=== PATIENT | female | born 1950 | race Caucasian/White ===

== ENCOUNTER 2016-02-17 08:45 | Outpatient (RCR) | payer MEDICARE, BC ==
[~2016-02-17 08:45] MED LIST: BACTRIM DS 8001 TAB PO; CHOLESTYRAMINE1 PO1; CIPRO 500MG TA500 MG PO; DEPO-ESTRADIO5 MG/ML IM; FEOSOL65 MG PO; FLAGYL 250250 MG/TAB PO; HCTZ12.5TAB PO; IRON; MERCAPTOPURINE50 MG PO; NEXIUM 40MG40 MG PO; NEXIUM40 MG PO; NORCO 325 MG-51 TAB PO; PHENERGAN 25 TA25 MG PO; PURINETHOL 50MG50 MG PO; QUESTRAN1 GM PO; QUESTRAN4 GM/9 GM PO; REMICADE V100 MG/VIA IV; RHINOCORT0.032 MG/1 NS; RT ADVAIR HFA 1112 G IH; SINGULAIR 110 MG/TAB PO; SINGULAIR10 MG PO; SYNTHROID0.05 MG/TA PO; VENTOLIN0.09 MG IH; ZESTRIL 20MG TA20 MG PO; ZYRTEC 10MG10 MG PO; ZYRTEC10 MG PO
== END 2016-02-24 09:02 | disposition still patient (30) ==
LOC: MKS.ESL.PT 08:45
DX: M25.552 Pain in left hip (principal); M79.605 Pain in left leg
CPT/HCPCS: G8978-GP; G8979-GP; G8980-GP

== ENCOUNTER 2016-03-08 13:25 | Outpatient (CLI) | payer MEDICARE, BC ==
[~2016-03-08] VITALS: Ht 160 cm; Wt 80.0 kg
[2016-03-08 14:26] LABS: BASO % 0.5 % (0.0-2.0); EOS # 0.2 (0.0-0.7); EOS % 2.8 % (0-4.0); GRAN # 4.7 (1.4-6.5); GRAN % 54.2 % (42.2-75.2); HEMATOCRIT 37.2 % (37.0-47.0); HEMOGLOBIN 12.5 g/dl (12.5-16.0); LYMPH # 2.7 (1.2-3.4); LYMPH % 31.2 % (20.0-51.0); MEAN CELL VOLUME 91 fl (80.0-100.0); MEAN CORPUSCULAR HEMOGLOBIN 31 pg (27.0-31.0); MEAN CORPUSCULAR HGB CONC 34 g/dl (33.0-37.0); MEAN PLATELET VOLUME 8.8 fl (7.4-10.4); PLATELET COUNT 268 K/mm3 (130-400); RED BLOOD COUNT 4.07 M/mm3 (4.10-5.30); REDCELL DISTRIBUTION WIDTH-CV 14.1 % (11.5-14.5); WHITE BLOOD COUNT 8.6 K/mm3 (4.8-10.8)
[2016-03-08 15:30] VITALS: BP 134/70; PULSE 70; TEMP 97.4
[2016-03-08 16:00] VITALS: BP 129/70; PULSE 62; TEMP 98
[2016-03-08 16:30] VITALS: BP 112/65; PULSE 53; TEMP 97.6
[2016-03-08 17:00] VITALS: BP 117/75; PULSE 60; TEMP 97.6
[2016-03-08 17:30] VITALS: BP 125/65; PULSE 59; TEMP 97.7
== END 2016-03-08 17:40 | disposition home or self-care (01) ==
LOC: EUO 13:25
PROVIDERS: Internal Medicine Gastroenterology
DX: K50.00 Crohn's disease of small intestine without complications (principal)
CPT/HCPCS: J1200; J1745; J7050

== ENCOUNTER 2016-04-20 20:35 | Emergency (ER) | payer MEDICARE, BC ==
[~2016-04-20] VITALS: Ht 160 cm; Wt 81.4 kg
[2016-04-20 20:38] VITALS: TEMP 97.5
[2016-04-20 21:40] LABS: BASO % 0.1 % (0.0-2.0); GRAN # 5.5 (1.4-6.5); GRAN % 69.7 % (42.2-75.2); HEMATOCRIT 39.7 % (37.0-47.0); LYMPH # 2.3 (1.2-3.4); LYMPH % 28.7 % (20.0-51.0); MEAN CELL VOLUME 92 fl (80.0-100.0); MEAN CORPUSCULAR HEMOGLOBIN 30 pg (27.0-31.0); MEAN CORPUSCULAR HGB CONC 33 g/dl (33.0-37.0); MEAN PLATELET VOLUME 8.8 fl (7.4-10.4); MONO # 0.1 (0.1-0.6); PLATELET COUNT 303 K/mm3 (130-400); REDCELL DISTRIBUTION WIDTH-CV 14.7 % (11.5-14.5); WHITE BLOOD COUNT 7.9 K/mm3 (4.8-10.8)
[2016-04-20 21:51] LABS: ADJUSTED CALCIUM 9.3 mg/dL (8.4-10.2); ALBUMIN 4.5 gm/dL (3.5-5.0); CALCIUM 9.7 mg/dL (8.4-10.2); CREATININE, serum 0.68 mg/dL (0.52-1.25); POTASSIUM 3.5 mmol/L (3.4-5.0); TOTAL PROTEIN 8.4 gm/dL (6.4-8.2)
[2016-04-20 21:56] LABS: PH 7 (5-8); SQUAMOUS EPITHELIAL 0-2 /hpf; URINE APPEARANCE Clear; URINE BACTERIA None Seen /hpf; URINE BILIRUBIN Negative (NEGATIVE); URINE BLOOD Negative (NEGATIVE); URINE COLOR Yellow; URINE GLUCOSE Negative (NEGATIVE); URINE KETONE Negative (NEGATIVE); URINE RBC 0-2 /hpf; URINE UROBILINOGEN Negative (NEGATIVE); URINE WBC None Seen /hpf
[2016-04-20] MEDS ORDERED: ZOFRAN ODT4 MG PO (22:54)
[2016-04-20 23:13] VITALS: BP 128/76; PULSE 62
== END 2016-04-20 23:16 | disposition home or self-care (01) ==
LOC: COL.ER 20:35
PROVIDERS: Family Medicine
DX: K52.9 Noninfective gastroenteritis and colitis, unspecified (principal); K50.90 Crohn's disease, unspecified, without complications; I10 Essential (primary) hypertension
CPT/HCPCS: J1170; J2405; J7030; Q9967

== ENCOUNTER 2016-05-04 12:52 | Outpatient (CLI) | payer MEDICARE, BC ==
[~2016-05-04] VITALS: Ht 160 cm; Wt 82.0 kg
[~2016-05-04 12:52] MED LIST changes: +ZOFRAN ODT4 MG PO
[2016-05-04 13:39] LABS: MEAN CELL VOLUME 93 fl (80.0-100.0); MEAN CORPUSCULAR HGB CONC 32 g/dl (33.0-37.0); MEAN PLATELET VOLUME 9.1 fl (7.4-10.4); PLATELET COUNT 298 K/mm3 (130-400); RED BLOOD COUNT 3.95 M/mm3 (4.10-5.30); REDCELL DISTRIBUTION WIDTH-CV 14.9 % (11.5-14.5); WHITE BLOOD COUNT 7.2 K/mm3 (4.8-10.8)
[2016-05-04 14:05] LABS: HEMATOCRIT 36.9 % (37.0-47.0); HEMOGLOBIN 11.8 g/dl (12.5-16.0); MEAN CORPUSCULAR HEMOGLOBIN 30 pg (27.0-31.0)
[2016-05-04 14:08] LABS: ALBUMIN 3.7 gm/dL (3.5-5.0); BILIRUBIN,DIRECT 0.4 mg/dL (0.0-0.4); BILIRUBIN,TOTAL 0.8 mg/dL (0.0-1.0)
[2016-05-04 14:50] VITALS: BP 137/74; PULSE 60; TEMP 98
[2016-05-04 15:20] VITALS: BP 122/66; PULSE 57; TEMP 97.5
[2016-05-04 15:50] VITALS: BP 121/64; PULSE 65; TEMP 97.7
[2016-05-04 16:20] VITALS: BP 128/66; PULSE 5; TEMP 97.7
[2016-05-04 17:04] VITALS: BP 125/56; PULSE 58; TEMP 97.5
== END 2016-05-04 17:55 | disposition home or self-care (01) ==
LOC: EUO 12:52
PROVIDERS: Internal Medicine Gastroenterology
DX: K50.00 Crohn's disease of small intestine without complications (principal)
CPT/HCPCS: J1200; J1745; J7050

== ENCOUNTER 2016-06-29 13:10 | Outpatient (CLI) | payer MEDICARE, BC ==
[~2016-06-29] VITALS: Ht 160 cm; Wt 80.9 kg
[2016-06-29 13:39] LABS: HEMATOCRIT 37.6 % (37.0-47.0); HEMOGLOBIN 12.1 g/dl (12.5-16.0); MEAN CELL VOLUME 91 fl (80.0-100.0); MEAN CORPUSCULAR HEMOGLOBIN 29 pg (27.0-31.0); MEAN CORPUSCULAR HGB CONC 32 g/dl (33.0-37.0); MEAN PLATELET VOLUME 9.1 fl (7.4-10.4); PLATELET COUNT 263 K/mm3 (130-400); RED BLOOD COUNT 4.15 M/mm3 (4.10-5.30); REDCELL DISTRIBUTION WIDTH-CV 15.3 % (11.5-14.5); WHITE BLOOD COUNT 5.8 K/mm3 (4.8-10.8)
[2016-06-29 13:43] VITALS: BP 108/67; PULSE 52; TEMP 98
[2016-06-29 13:57] LABS: ALBUMIN 4.2 gm/dL (3.5-5.0); BILIRUBIN,TOTAL 0.9 mg/dL (0.0-1.0); TOTAL PROTEIN 7.4 gm/dL (6.4-8.2)
[2016-06-29 14:07] LABS: BILIRUBIN,DIRECT 0.5 mg/dL (0.0-0.4)
[2016-06-29 14:49] VITALS: BP 115/74; PULSE 53; TEMP 98
[2016-06-29 15:20] VITALS: BP 125/59; PULSE 52
[2016-06-29 15:50] VITALS: BP 107/62; PULSE 46
[2016-06-29 16:15] VITALS: BP 121/68; PULSE 55
[2016-06-29 16:49] VITALS: BP 114/60; PULSE 50; TEMP 98.3
== END 2016-06-29 16:50 | disposition home or self-care (01) ==
LOC: EUO 13:10
PROVIDERS: Internal Medicine Gastroenterology
DX: K50.00 Crohn's disease of small intestine without complications (principal)
CPT/HCPCS: J1200; J1745; J7050

== ENCOUNTER 2016-08-24 12:59 | Outpatient (CLI) | payer MEDICARE, BC ==
[~2016-08-24] VITALS: Ht 160 cm; Wt 80.9 kg
[2016-08-24 13:22] LABS: MEAN CELL VOLUME 90 fl (80.0-100.0); MEAN CORPUSCULAR HGB CONC 31 g/dl (33.0-37.0); MEAN PLATELET VOLUME 8.9 fl (7.4-10.4); PLATELET COUNT 254 K/mm3 (130-400); RED BLOOD COUNT 3.64 M/mm3 (4.10-5.30); REDCELL DISTRIBUTION WIDTH-CV 15.6 % (11.5-14.5); WHITE BLOOD COUNT 8.3 K/mm3 (4.8-10.8)
[2016-08-24 13:32] LABS: HEMATOCRIT 32.8 % (37.0-47.0); HEMOGLOBIN 10.3 g/dl (12.5-16.0); MEAN CORPUSCULAR HEMOGLOBIN 28 pg (27.0-31.0)
[2016-08-24 13:36] LABS: ALBUMIN 3.8 gm/dL (3.5-5.0); BILIRUBIN,TOTAL 0.6 mg/dL (0.0-1.0)
[2016-08-24 13:46] LABS: BILIRUBIN,DIRECT 0.5 mg/dL (0.0-0.4)
[2016-08-24 15:00] VITALS: BP 111/81; PULSE 55; TEMP 98.5
[2016-08-24 15:17] VITALS: BP 133/67; PULSE 51; TEMP 98
[2016-08-24 16:00] VITALS: BP 128/57; PULSE 50; TEMP 98.2
[2016-08-24 17:16] VITALS: BP 149/91; PULSE 50; TEMP 98.2
== END 2016-08-24 18:01 | disposition home or self-care (01) ==
LOC: EUO 12:59
PROVIDERS: Internal Medicine Gastroenterology
DX: K50.90 Crohn's disease, unspecified, without complications (principal); Z79.899 Other long term (current) drug therapy
CPT/HCPCS: J1200; J7050; Q5102-ZB

== ENCOUNTER → 2016-08-29 | Outpatient (CLI) | payer MEDICARE, BC ==
[~2016-08-29] MED LIST changes: +IMURAN 50MG TAB50 MG PO; +INFLECTRA100 MG IV
== END ==
LOC: MC.RAD 09:36
DX: Z12.31 Encounter for screening mammogram for malignant neoplasm of breast (principal)

== ENCOUNTER 2016-10-19 12:53 | Outpatient (CLI) | payer MEDICARE, BC ==
[~2016-10-19] VITALS: Ht 160 cm; Wt 82.3 kg
[~2016-10-19 12:53] MED LIST changes: -IMURAN 50MG TAB50 MG PO; -INFLECTRA100 MG IV
[2016-10-19] MEDS ORDERED: IMURAN 50MG TAB50 MG PO (13:25)
[2016-10-19] MEDS ORDERED: INFLECTRA100 MG IV (13:26)
[2016-10-19 13:32] LABS: MEAN CELL VOLUME 88 fl (80.0-100.0); MEAN CORPUSCULAR HGB CONC 32 g/dl (33.0-37.0); MEAN PLATELET VOLUME 8.9 fl (7.4-10.4); PLATELET COUNT 300 K/mm3 (130-400); RED BLOOD COUNT 4.06 M/mm3 (4.10-5.30)
[2016-10-19 13:33] VITALS: BP 113/64; PULSE 58; TEMP 97.5
[2016-10-19 13:38] LABS: HEMATOCRIT 35.9 % (37.0-47.0); HEMOGLOBIN 11.5 g/dl (12.5-16.0); MEAN CORPUSCULAR HEMOGLOBIN 28 pg (27.0-31.0)
[2016-10-19 13:40] LABS: BILIRUBIN,TOTAL 0.7 mg/dL (0.0-1.0); TOTAL PROTEIN 7.5 gm/dL (6.4-8.2)
[2016-10-19 13:55] LABS: BILIRUBIN,DIRECT 0.5 mg/dL (0.0-0.4)
[2016-10-19 15:00] VITALS: BP 119/66; PULSE 50; TEMP 98.2
[2016-10-19 15:30] VITALS: BP 113/62; PULSE 48; TEMP 97.9
[2016-10-19 16:16] VITALS: BP 128/68; PULSE 48; TEMP 98.4
[2016-10-19 17:15] VITALS: BP 135/78; PULSE 55; TEMP 98.3
[2016-12-14] MEDS ORDERED: TEMOVATE OINT30 GM TOP (02:57)
[2016-12-14] MEDS ORDERED: NEXIUM 20MG20 MG PO (02:57)
[2016-12-14] MEDS ORDERED: MASON NATURAL2000 IU PO (02:57)
[2016-12-14] MEDS ORDERED: ALMACONE 360 M360 ML PO (02:57)
[2016-12-14] MEDS ORDERED: HCTZ12.5TAB PO (02:58)
[2016-12-14] MEDS ORDERED: LACTAID3000 UNIT PO (03:00)
[2016-12-14] MEDS ORDERED: INFLECTRA100 MG IV (03:00)
[2016-12-14] MEDS ORDERED: SYNTHROID0.05 MG/TA PO (03:01)
[2016-12-14] MEDS ORDERED: PRINIVIL20 MG PO (03:01)
[2016-12-14] MEDS ORDERED: SINGULAIR 110 MG/TAB PO (03:01)
[2016-12-14] MEDS ORDERED: MACROBID 1100 MG/CAP PO (03:02)
[2016-12-14] MEDS ORDERED: MULTIPLE VITAMI1 CAP PO (03:02)
== END 2016-10-19 17:30 | disposition home or self-care (01) ==
LOC: EUO 12:53
PROVIDERS: Internal Medicine Gastroenterology
DX: K50.00 Crohn's disease of small intestine without complications (principal)
CPT/HCPCS: J1200; J7050; Q5102-ZB

== ENCOUNTER 2016-12-14 13:08 | Outpatient (CLI) | payer MEDICARE, BC ==
[~2016-12-14] VITALS: Ht 160 cm; Wt 81.2 kg
[~2016-12-14 13:08] MED LIST changes: +ALMACONE 360 M360 ML PO; +IMURAN 50MG TAB50 MG PO; +INFLECTRA100 MG IV; +LACTAID3000 UNIT PO; +MACROBID 1100 MG/CAP PO; +MASON NATURAL2000 IU PO; +MULTIPLE VITAMI1 CAP PO; +NEXIUM 20MG20 MG PO; +PRINIVIL20 MG PO; +TEMOVATE OINT30 GM TOP
[2016-12-14 14:00] VITALS: BP 116/69; PULSE 57; TEMP 98.1
[2016-12-14 14:30] VITALS: BP 117/74; PULSE 55; TEMP 97.9
[2016-12-14 15:00] VITALS: BP 112/77; PULSE 58
[2016-12-14 15:29] VITALS: BP 113/70; PULSE 53; TEMP 98.1
[2016-12-14 16:07] VITALS: BP 121/72; PULSE 54; TEMP 98.1
== END 2016-12-14 17:00 | disposition home or self-care (01) ==
LOC: EUO 13:08
DX: K50.00 Crohn's disease of small intestine without complications (principal)
CPT/HCPCS: J1200; J7050; Q5102-ZB

== ENCOUNTER → 2017-01-30 | Outpatient (CLI) | payer MEDICARE, BC | LOC: COL.RAD 14:55 | DX: R10.33 Periumbilical pain (principal); R93.3 Abnormal findings on diagnostic imaging of other parts of digestive tract; K50.90 Crohn's disease, unspecified, without complications | CPT/HCPCS: J7050; Q9967 ==

== ENCOUNTER → 2017-01-31 | Outpatient (CLI) | payer MEDICARE, BC | LOC: ZCOL.LAB 15:36 | DX: K65.1 Peritoneal abscess (principal) ==

== ENCOUNTER 2017-02-08 13:59 | Outpatient (CLI) | payer MEDICARE, BC ==
[~2017-02-08] VITALS: Ht 160 cm; Wt 81.7 kg
[2017-02-08 14:30] LABS: HEMATOCRIT 37.8 % (37.0-47.0); MEAN CELL VOLUME 91 fl (80.0-100.0); MEAN CORPUSCULAR HEMOGLOBIN 29 pg (27.0-31.0); MEAN CORPUSCULAR HGB CONC 32 g/dl (33.0-37.0); PLATELET COUNT 300 K/mm3 (130-400); RED BLOOD COUNT 4.16 M/mm3 (4.10-5.30); WHITE BLOOD COUNT 7.2 K/mm3 (4.8-10.8)
[2017-02-08 14:32] LABS: HEMOGLOBIN 11.9 g/dl (12.5-16.0)
[2017-02-08 14:47] LABS: ALBUMIN 4.3 gm/dL (3.5-5.0); BILIRUBIN,TOTAL 0.8 mg/dL (0.0-1.0); TOTAL PROTEIN 7.7 gm/dL (6.4-8.2)
[2017-02-08 15:01] VITALS: BP 148/72; PULSE 62; TEMP 98
[2017-02-08 15:02] LABS: BILIRUBIN UNCONJUGATED 0.3 mg/dL (0.0-1.1); BILIRUBIN,DIRECT 0.3 mg/dL (0.0-0.4)
[2017-02-08 16:30] VITALS: BP 137/63; PULSE 54; TEMP 97.7
[2017-02-08 17:00] VITALS: BP 118/66; PULSE 51; TEMP 98.1
[2017-02-08 17:30] VITALS: BP 118/67; PULSE 51; TEMP 98.4
[2017-02-08 18:00] VITALS: BP 118/60; PULSE 47; TEMP 98.2
== END 2017-02-08 18:27 | disposition home or self-care (01) ==
LOC: EUO 13:59
PROVIDERS: Internal Medicine Gastroenterology
DX: K50.00 Crohn's disease of small intestine without complications (principal); Z79.899 Other long term (current) drug therapy
CPT/HCPCS: J1200; J7050; Q5102-ZB

== ENCOUNTER 2017-04-05 12:53 | Outpatient (CLI) | payer MEDICARE, BC ==
[~2017-04-05] VITALS: Ht 160 cm; Wt 82.0 kg
[2017-04-05 13:18] LABS: HEMATOCRIT 37.1 % (37.0-47.0); MEAN CELL VOLUME 89 fl (80.0-100.0); MEAN CORPUSCULAR HEMOGLOBIN 27 pg (27.0-31.0); MEAN CORPUSCULAR HGB CONC 31 g/dl (33.0-37.0); PLATELET COUNT 286 K/mm3 (130-400); RED BLOOD COUNT 4.16 M/mm3 (4.10-5.30); REDCELL DISTRIBUTION WIDTH-CV 15.2 % (11.5-14.5)
[2017-04-05 13:20] LABS: HEMOGLOBIN 11.3 g/dl (12.5-16.0)
[2017-04-05 13:26] LABS: ALBUMIN 4.2 gm/dL (3.5-5.0); TOTAL PROTEIN 7.5 gm/dL (6.4-8.2)
[2017-04-05 13:49] LABS: BILIRUBIN UNCONJUGATED 0.4 mg/dL (0.0-1.1); BILIRUBIN,DIRECT 0.3 mg/dL (0.0-0.4); BILIRUBIN,TOTAL 0.7 mg/dL (0.0-1.0)
[2017-04-05 14:20] VITALS: BP 123/66; PULSE 52; TEMP 98.3
[2017-04-05 14:50] VITALS: BP 118/66; PULSE 55; TEMP 97.6
[2017-04-05 15:20] VITALS: BP 121/71; PULSE 54; TEMP 97.6
[2017-04-05 15:56] VITALS: BP 132/49; PULSE 56; TEMP 98.1
[2017-04-05 16:25] VITALS: BP 99/45; PULSE 50; TEMP 97.7
== END 2017-04-05 16:26 | disposition home or self-care (01) ==
LOC: EUO 12:53
PROVIDERS: Internal Medicine Gastroenterology
DX: K50.00 Crohn's disease of small intestine without complications (principal); Z79.899 Other long term (current) drug therapy
CPT/HCPCS: J1200; J7050; Q5102-ZB

== ENCOUNTER → 2017-05-31 | Outpatient (CLI) | payer MEDICARE, BC ==
[~2017-05-31] VITALS: Ht 160 cm; Wt 83.9 kg
[2017-05-31 13:24] LABS: HEMATOCRIT 37.3 % (37.0-47.0); MEAN CELL VOLUME 89 fl (80.0-100.0); MEAN CORPUSCULAR HEMOGLOBIN 28 pg (27.0-31.0); MEAN CORPUSCULAR HGB CONC 31 g/dl (33.0-37.0); PLATELET COUNT 274 K/mm3 (130-400); RED BLOOD COUNT 4.19 M/mm3 (4.10-5.30); REDCELL DISTRIBUTION WIDTH-CV 16.2 % (11.5-14.5)
[2017-05-31 13:27] LABS: HEMOGLOBIN 11.7 g/dl (12.5-16.0)
[2017-05-31 13:35] LABS: ALBUMIN 3.9 gm/dL (3.5-5.0); BILIRUBIN UNCONJUGATED 0.4 mg/dL (0.0-1.1); BILIRUBIN,DIRECT 0.2 mg/dL (0.0-0.4); BILIRUBIN,TOTAL 0.5 mg/dL (0.0-1.0); TOTAL PROTEIN 7.5 gm/dL (6.4-8.2)
[2017-05-31 15:00] VITALS: BP 122/69; PULSE 64; TEMP 98.3
[2017-05-31 15:35] VITALS: BP 129/68; PULSE 67; TEMP 98.3
[2017-05-31 16:05] VITALS: BP 120/63; PULSE 55
== END ==
LOC: EUO 13:00
PROVIDERS: Internal Medicine Gastroenterology
DX: K50.00 Crohn's disease of small intestine without complications (principal); Z79.899 Other long term (current) drug therapy
CPT/HCPCS: J1200; J7050; Q5103

== ENCOUNTER 2017-07-26 13:08 | Outpatient (CLI) | payer MEDICARE, BC ==
[~2017-07-26] VITALS: Ht 160 cm; Wt 82.3 kg
[2017-07-26 13:21] LABS: HEMOGLOBIN 11.3 g/dl (12.5-16.0); MEAN CELL VOLUME 87 fl (80.0-100.0); MEAN CORPUSCULAR HEMOGLOBIN 27 pg (27.0-31.0); MEAN CORPUSCULAR HGB CONC 31 g/dl (33.0-37.0); MEAN PLATELET VOLUME 8.7 fl (7.4-10.4); PLATELET COUNT 295 K/mm3 (130-400); RED BLOOD COUNT 4.13 M/mm3 (4.10-5.30); REDCELL DISTRIBUTION WIDTH-CV 15.4 % (11.5-14.5)
[2017-07-26 13:31] LABS: ALBUMIN 3.8 gm/dL (3.5-5.0); BILIRUBIN UNCONJUGATED 0.4 mg/dL (0.0-1.1); BILIRUBIN,DIRECT 0.2 mg/dL (0.0-0.4); BILIRUBIN,TOTAL 0.6 mg/dL (0.0-1.0); TOTAL PROTEIN 7.5 gm/dL (6.4-8.2)
[2017-07-26 14:40] VITALS: BP 110/56; PULSE 56; TEMP 98.3
[2017-07-26 15:18] VITALS: BP 119/51; PULSE 54; TEMP 98.4
[2017-07-26 16:41] VITALS: BP 109/62; PULSE 51; TEMP 98.3
[2017-07-26 17:00] VITALS: BP 107/61; PULSE 55; TEMP 97.6
== END 2017-07-26 17:01 | disposition home or self-care (01) ==
LOC: EUO 13:08
PROVIDERS: Internal Medicine Gastroenterology
DX: K50.00 Crohn's disease of small intestine without complications (principal); Z79.899 Other long term (current) drug therapy
CPT/HCPCS: J1200; J7050; Q5103

== ENCOUNTER 2017-09-03 06:18 | Emergency (ER) | payer MEDICARE, BC ==
[~2017-09-03] VITALS: Ht 160 cm; Wt 80.9 kg
[2017-09-03 06:21] VITALS: TEMP 97.9
[2017-09-03 07:03] LABS: BASO % 0.4 % (0.0-2.0); EOS # 0.2 (0.0-0.7); EOS % 2.9 % (0-4.0); GRAN # 4.9 (1.4-6.5); HEMOGLOBIN 11.4 g/dl (12.5-16.0); LYMPH % 24.7 % (20.0-51.0); MEAN CELL VOLUME 85 fl (80.0-100.0); MEAN CORPUSCULAR HEMOGLOBIN 27 pg (27.0-31.0); MEAN CORPUSCULAR HGB CONC 32 g/dl (33.0-37.0); MEAN PLATELET VOLUME 9.3 fl (7.4-10.4); MONO % 11.5 % (1.7-9.3); PLATELET COUNT 276 K/mm3 (130-400); RED BLOOD COUNT 4.24 M/mm3 (4.10-5.30); REDCELL DISTRIBUTION WIDTH-CV 15.4 % (11.5-14.5)
[2017-09-03 07:05] LABS: HEMATOCRIT 35.9 % (37.0-47.0)
[2017-09-03] MEDS ORDERED: VITAMIN C500 MG PO (07:09)
[2017-09-03] MEDS ORDERED: ANTIVERT 25MG25 MG PO (07:09)
[2017-09-03 07:12] LABS: BILIRUBIN,TOTAL 0.7 mg/dL (0.0-1.0); C-REACTIVE PROTEIN 0.6 mg/dL (0.0-0.9); CALCIUM 8.7 mg/dL (8.4-10.2); CREATININE, serum 0.8 mg/dL (0.52-1.25); POTASSIUM 3.5 mmol/L (3.4-5.0); TOTAL PROTEIN 7.6 gm/dL (6.4-8.2)
[2017-09-03 08:05] LABS: COLLECTION METHOD CLEAN CATCH
[2017-09-03 08:13] LABS: MUCOUS Present /lpf; PH 5 (5-8); SQUAMOUS EPITHELIAL 0-2 /hpf; URINE APPEARANCE Turbid; URINE BACTERIA None Seen /hpf; URINE BILIRUBIN Negative (NEGATIVE); URINE BLOOD Negative (NEGATIVE); URINE COLOR Yellow; URINE GLUCOSE Negative (NEGATIVE); URINE KETONE Negative (NEGATIVE); URINE LEUKOCYTE ESTERASE 1+ (NEGATIVE); URINE NITRATE Negative (NEGATIVE); URINE PROTEIN(semi-quant) Negative (NEGATIVE); URINE RBC 0-2 /hpf; URINE UROBILINOGEN Negative (NEGATIVE)
[2017-09-03] MEDS ORDERED: ZOFRAN 4MG T4 MG/TAB PO (08:24)
[2017-09-03 09:16] VITALS: BP 121/69; PULSE 55
== END 2017-09-03 09:30 | disposition home or self-care (01) ==
LOC: COL.ER 06:18
PROVIDERS: Emergency Medicine
DX: R19.7 Diarrhea, unspecified (principal); R11.0 Nausea; R10.9 Unspecified abdominal pain; K50.90 Crohn's disease, unspecified, without complications; J45.909 Unspecified asthma, uncomplicated; Z90.710 Acquired absence of both cervix and uterus; Z79.51 Long term (current) use of inhaled steroids
CPT/HCPCS: J2405; J7030

== ENCOUNTER 2017-09-20 12:59 | Outpatient (CLI) | payer MEDICARE, BC ==
[~2017-09-20] VITALS: Ht 160 cm; Wt 82.2 kg
[~2017-09-20 12:59] MED LIST changes: +ANTIVERT 25MG25 MG PO; +VITAMIN C500 MG PO; +ZOFRAN 4MG T4 MG/TAB PO
[2017-09-20 13:46] LABS: HEMOGLOBIN 11.1 g/dl (12.5-16.0); MEAN CELL VOLUME 87 fl (80.0-100.0); MEAN CORPUSCULAR HEMOGLOBIN 26 pg (27.0-31.0); MEAN CORPUSCULAR HGB CONC 30 g/dl (33.0-37.0); MEAN PLATELET VOLUME 9.2 fl (7.4-10.4); PLATELET COUNT 292 K/mm3 (130-400); RED BLOOD COUNT 4.23 M/mm3 (4.10-5.30); REDCELL DISTRIBUTION WIDTH-CV 15.4 % (11.5-14.5)
[2017-09-20 13:48] LABS: HEMATOCRIT 36.6 % (37.0-47.0)
[2017-09-20 14:23] VITALS: BP 119/66; PULSE 52; TEMP 98.1
[2017-09-20 14:53] VITALS: BP 118/64; PULSE 49
[2017-09-20 15:30] VITALS: BP 103/64; PULSE 52
== END 2017-09-20 18:00 | disposition home or self-care (01) ==
LOC: EUO 12:59
PROVIDERS: Internal Medicine Gastroenterology
DX: K50.00 Crohn's disease of small intestine without complications (principal); Z79.899 Other long term (current) drug therapy
CPT/HCPCS: J1200; J7050; Q5103

== ENCOUNTER 2017-11-15 13:12 | Outpatient (CLI) | payer MEDICARE, BC ==
[~2017-11-15] VITALS: Ht 160 cm; Wt 83.0 kg
[2017-11-15 13:42] LABS: HEMOGLOBIN 11.1 g/dl (12.5-16.0); MEAN CELL VOLUME 82 fl (80.0-100.0); MEAN CORPUSCULAR HEMOGLOBIN 25 pg (27.0-31.0); MEAN CORPUSCULAR HGB CONC 31 g/dl (33.0-37.0); MEAN PLATELET VOLUME 9.5 fl (7.4-10.4); PLATELET COUNT 206 K/mm3 (130-400); RED BLOOD COUNT 4.38 M/mm3 (4.10-5.30); REDCELL DISTRIBUTION WIDTH-CV 15.4 % (11.5-14.5)
[2017-11-15 13:44] LABS: HEMATOCRIT 36.1 % (37.0-47.0)
[2017-11-15] MEDS ORDERED: FLAGYL 250250 MG/TAB PO (13:57)
[2017-11-15] MEDS ORDERED: SYNTHROID0.075 MG/T PO (13:58)
[2017-11-15 14:03] VITALS: BP 124/66; PULSE 51; TEMP 97.6
[2017-11-15 14:33] VITALS: BP 109/90; PULSE 51; TEMP 97.6
[2017-11-15 15:03] VITALS: BP 125/76; PULSE 51; TEMP 97.9
[2017-11-15 15:33] VITALS: BP 122/68; PULSE 54; TEMP 98
[2017-11-15 16:03] VITALS: BP 121/69; PULSE 54; TEMP 98
[2017-11-15 16:27] VITALS: BP 121/69; PULSE 54; TEMP 98.3
== END 2017-11-15 18:05 | disposition home or self-care (01) ==
LOC: EUO 13:12
PROVIDERS: Internal Medicine Gastroenterology
DX: K50.00 Crohn's disease of small intestine without complications (principal); Z79.899 Other long term (current) drug therapy
CPT/HCPCS: J1200; J7050; Q5103

== ENCOUNTER → 2017-12-04 | Outpatient (CLI) | payer MEDICARE, BC ==
[~2017-12-04] MED LIST changes: +SYNTHROID0.075 MG/T PO
== END ==
LOC: MC.RAD 11-01 10:40
DX: Z12.31 Encounter for screening mammogram for malignant neoplasm of breast (principal)

== ENCOUNTER → 2017-12-14 | Outpatient (CLI) | payer MEDICARE, BC | LOC: COL.RAD 12-13 11:30 | DX: K50.80 Crohn's disease of both small and large intestine without complications (principal); Z90.710 Acquired absence of both cervix and uterus; Z98.890 Other specified postprocedural states | CPT/HCPCS: Q9967 ==

== ENCOUNTER 2018-01-10 13:04 | Outpatient (CLI) | payer MEDICARE, BC ==
[~2018-01-10] VITALS: Ht 160 cm; Wt 81.0 kg
[2018-01-10 13:49] LABS: HEMOGLOBIN 11.2 g/dl (12.5-16.0); MEAN CELL VOLUME 82 fl (80.0-100.0); MEAN CORPUSCULAR HEMOGLOBIN 26 pg (27.0-31.0); MEAN CORPUSCULAR HGB CONC 31 g/dl (33.0-37.0); MEAN PLATELET VOLUME 9.1 fl (7.4-10.4); PLATELET COUNT 297 K/mm3 (130-400); RED BLOOD COUNT 4.37 M/mm3 (4.10-5.30); REDCELL DISTRIBUTION WIDTH-CV 16.2 % (11.5-14.5)
[2018-01-10 13:53] LABS: HEMATOCRIT 35.8 % (37.0-47.0)
[2018-01-10 14:05] LABS: ALBUMIN 4.3 gm/dL (3.5-5.0); BILIRUBIN,TOTAL 0.7 mg/dL (0.0-1.0); TOTAL PROTEIN 7.9 gm/dL (6.4-8.2)
[2018-01-10 14:28] VITALS: BP 124/77; PULSE 58; TEMP 97.4
[2018-01-10 14:31] LABS: BILIRUBIN UNCONJUGATED 0.3 mg/dL (0.0-1.1); BILIRUBIN,DIRECT 0.4 mg/dL (0.0-0.4)
[2018-01-10 15:00] VITALS: BP 110/59; PULSE 53; TEMP 98.1
[2018-01-10 15:30] VITALS: BP 97/52; PULSE 52; TEMP 98.1
[2018-01-10 16:00] VITALS: BP 97/54; PULSE 50; TEMP 97.7
[2018-01-10 16:30] VITALS: BP 109/64; PULSE 54; TEMP 98
== END 2018-01-10 16:37 | disposition home or self-care (01) ==
LOC: EUO 13:04
PROVIDERS: Internal Medicine Gastroenterology
DX: K50.00 Crohn's disease of small intestine without complications (principal); Z79.899 Other long term (current) drug therapy
CPT/HCPCS: J1200; J7050; Q5103

== ENCOUNTER 2018-03-07 11:01 | Outpatient (CLI) | payer MEDICARE, BC ==
[~2018-03-07] VITALS: Ht 160 cm; Wt 81.6 kg
[2018-03-07] MEDS ORDERED: FLAGYL 250250 MG/TAB PO (11:29)
[2018-03-07] MEDS ORDERED: QUESTRAN4 GM/9 GM PO (11:30)
[2018-03-07 11:33] VITALS: BP 108/62; PULSE 62; TEMP 97.8
[2018-03-07 11:36] LABS: HEMOGLOBIN 10.9 g/dl (12.5-16.0); MEAN CELL VOLUME 81 fl (80.0-100.0); MEAN CORPUSCULAR HEMOGLOBIN 25 pg (27.0-31.0); MEAN CORPUSCULAR HGB CONC 30 g/dl (33.0-37.0); MEAN PLATELET VOLUME 8.6 fl (7.4-10.4); PLATELET COUNT 295 K/mm3 (130-400); RED BLOOD COUNT 4.45 M/mm3 (4.10-5.30); REDCELL DISTRIBUTION WIDTH-CV 16.2 % (11.5-14.5)
[2018-03-07 11:37] LABS: HEMATOCRIT 35.9 % (37.0-47.0)
== END 2018-03-07 14:00 | disposition home or self-care (01) ==
LOC: EUO 11:01
PROVIDERS: Internal Medicine Gastroenterology
DX: K50.90 Crohn's disease, unspecified, without complications (principal)
CPT/HCPCS: J1200; J7050; Q5103

== ENCOUNTER 2018-05-02 13:00 | Outpatient (CLI) | payer MEDICARE, BC ==
[2018-05-02 13:46] LABS: HEMOGLOBIN 10.7 g/dl (12.5-16.0); MEAN CELL VOLUME 82 fl (80.0-100.0); MEAN CORPUSCULAR HEMOGLOBIN 25 pg (27.0-31.0); MEAN CORPUSCULAR HGB CONC 30 g/dl (33.0-37.0); MEAN PLATELET VOLUME 8.6 fl (7.4-10.4); PLATELET COUNT 293 K/mm3 (130-400); RED BLOOD COUNT 4.29 M/mm3 (4.10-5.30); REDCELL DISTRIBUTION WIDTH-CV 16.2 % (11.5-14.5)
[2018-05-02 13:55] LABS: HEMATOCRIT 35.3 % (37.0-47.0)
[2018-05-02 14:12] LABS: BILIRUBIN UNCONJUGATED 0.3 mg/dL (0.0-1.1); BILIRUBIN,TOTAL 0.3 mg/dL (0.0-1.0); TOTAL PROTEIN 7.7 gm/dL (6.4-8.2)
[2018-05-02 15:08] VITALS: BP 131/72; PULSE 58; TEMP 97.8
[2018-05-02 15:38] VITALS: BP 105/39; PULSE 73
[2018-05-02 16:08] VITALS: BP 90/49; PULSE 70
[2018-05-02 16:30] VITALS: BP 120/62; PULSE 59; TEMP 98.3
[2018-05-02 17:00] VITALS: BP 117/65; PULSE 58
[2018-05-02 17:30] VITALS: BP 120/67; PULSE 54; TEMP 98
== END 2018-05-02 17:32 | disposition home or self-care (01) ==
LOC: EUO 13:00
PROVIDERS: Internal Medicine Gastroenterology
DX: K50.00 Crohn's disease of small intestine without complications (principal); Z79.899 Other long term (current) drug therapy
CPT/HCPCS: J1200; J7050; Q5103

== ENCOUNTER 2018-06-27 13:03 | Outpatient (CLI) | payer MEDICARE, BC ==
[~2018-06-27] VITALS: Ht 160 cm; Wt 86.1 kg
[2018-06-27 13:29] LABS: HEMOGLOBIN 10.4 g/dl (12.5-16.0); MEAN CELL VOLUME 82 fl (80.0-100.0); MEAN CORPUSCULAR HEMOGLOBIN 25 pg (27.0-31.0); MEAN CORPUSCULAR HGB CONC 30 g/dl (33.0-37.0); MEAN PLATELET VOLUME 8.6 fl (7.4-10.4); PLATELET COUNT 322 K/mm3 (130-400)
[2018-06-27 13:30] LABS: HEMATOCRIT 34.3 % (37.0-47.0)
[2018-06-27 14:30] VITALS: BP 126/69; PULSE 54; TEMP 97.6
[2018-06-27 15:00] VITALS: BP 121/56; PULSE 60; TEMP 98.1
[2018-06-27 15:30] VITALS: BP 119/56; PULSE 55; TEMP 98.1
[2018-06-27 16:00] VITALS: BP 118/52; PULSE 57; TEMP 98.1
[2018-06-27 16:39] VITALS: BP 120/61; PULSE 56; TEMP 98.1
== END 2018-06-27 16:41 | disposition home or self-care (01) ==
LOC: EUO 13:03
PROVIDERS: Internal Medicine Gastroenterology
DX: K50.00 Crohn's disease of small intestine without complications (principal); Z79.899 Other long term (current) drug therapy
CPT/HCPCS: J1200; J7050; Q5103

== ENCOUNTER 2018-07-01 01:48 | Emergency (ER) | payer MEDICARE, BC ==
[~2018-07-01] VITALS: Ht 160 cm; Wt 81.8 kg
[2018-07-01 01:53] VITALS: BP 172/80; PULSE 61; TEMP 97.6
[2018-07-01] MEDS ORDERED: CEPHALEXIN500 M1 PO (02:26)
== END 2018-07-01 02:42 | disposition home or self-care (01) ==
LOC: COL.ER 01:48
DX: S61.232A Puncture wound without foreign body of right middle finger without damage to nail, initial encounter (principal); L03.011 Cellulitis of right finger; K50.90 Crohn's disease, unspecified, without complications; J45.909 Unspecified asthma, uncomplicated; E03.9 Hypothyroidism, unspecified; I10 Essential (primary) hypertension; Z79.51 Long term (current) use of inhaled steroids; W60.XXXA Contact with nonvenomous plant thorns and spines and sharp leaves, initial encounter; Y92.009 Unspecified place in unspecified non-institutional (private) residence as the place of occurrence of the external cause

== ENCOUNTER 2018-08-22 13:08 | Outpatient (CLI) | payer MEDICARE, BC ==
[~2018-08-22] VITALS: Ht 160 cm; Wt 82.1 kg
[~2018-08-22 13:08] MED LIST changes: +CEPHALEXIN500 M1 PO
[2018-08-22 13:51] LABS: MEAN CELL VOLUME 80 fl (80.0-100.0); MEAN CORPUSCULAR HEMOGLOBIN 24 pg (27.0-31.0); MEAN CORPUSCULAR HGB CONC 30 g/dl (33.0-37.0); MEAN PLATELET VOLUME 8.9 fl (7.4-10.4); PLATELET COUNT 315 K/mm3 (130-400); RED BLOOD COUNT 4.18 M/mm3 (4.10-5.30); REDCELL DISTRIBUTION WIDTH-CV 16.4 % (11.5-14.5)
[2018-08-22 13:52] LABS: HEMATOCRIT 33.6 % (37.0-47.0)
[2018-08-22 14:05] LABS: ALBUMIN 3.9 gm/dL (3.5-5.0); BILIRUBIN UNCONJUGATED 0.4 mg/dL (0.0-1.1); BILIRUBIN,DIRECT 0.1 mg/dL (0.0-0.4); BILIRUBIN,TOTAL 0.4 mg/dL (0.0-1.0); TOTAL PROTEIN 7.6 gm/dL (6.4-8.2)
[2018-08-22 15:00] VITALS: BP 131/55; PULSE 65; TEMP 98.5
[2018-08-22 15:30] VITALS: BP 99/65; PULSE 53; TEMP 98.9
[2018-08-22 16:00] VITALS: BP 110/65; PULSE 55; TEMP 98.1
[2018-08-22 16:30] VITALS: BP 126/72; PULSE 57; TEMP 98.3
[2018-08-22 17:00] VITALS: BP 118/65; PULSE 51; TEMP 97.5
== END 2018-08-22 17:30 | disposition home or self-care (01) ==
LOC: EUO 13:08
PROVIDERS: Internal Medicine Gastroenterology
DX: K50.80 Crohn's disease of both small and large intestine without complications (principal); Z79.899 Other long term (current) drug therapy
CPT/HCPCS: J1200; J7050; Q5103

== ENCOUNTER 2018-10-17 13:45 | Outpatient (CLI) | payer MEDICARE, BC ==
[~2018-10-17] VITALS: Ht 160 cm; Wt 81.8 kg
[2018-10-17 14:18] LABS: HEMATOCRIT 40.5 % (37.0-47.0); HEMOGLOBIN 12.6 g/dl (12.5-16.0); MEAN CELL VOLUME 86 fl (80.0-100.0); MEAN CORPUSCULAR HEMOGLOBIN 27 pg (27.0-31.0); MEAN CORPUSCULAR HGB CONC 31 g/dl (33.0-37.0); MEAN PLATELET VOLUME 8.5 fl (7.4-10.4); PLATELET COUNT 263 K/mm3 (130-400); RED BLOOD COUNT 4.69 M/mm3 (4.10-5.30); REDCELL DISTRIBUTION WIDTH-CV 22.5 % (11.5-14.5)
[2018-10-17 15:06] VITALS: BP 135/80; PULSE 68; TEMP 97.4
[2018-10-17 15:35] VITALS: BP 124/71; PULSE 51; TEMP 98.5
[2018-10-17 16:05] VITALS: BP 127/65; BP 131/70; PULSE 49; PULSE 51; TEMP 97.8; TEMP 98.2
[2018-10-17] MEDS ORDERED: IRON TABLETS325 MG PO (16:17)
[2018-10-17] MEDS ORDERED: ZANTAC 150MG T150 MG PO (16:18)
[2018-10-17 16:35] VITALS: BP 131/70; PULSE 49; TEMP 98.2
[2018-10-17 17:05] VITALS: BP 135/64; PULSE 50; TEMP 98.2
[2018-10-17 17:24] VITALS: BP 132/73; PULSE 53; TEMP 98.3
== END 2018-10-17 17:25 | disposition home or self-care (01) ==
LOC: EUO 13:45
PROVIDERS: Internal Medicine Gastroenterology
DX: K50.80 Crohn's disease of both small and large intestine without complications (principal); Z79.899 Other long term (current) drug therapy
CPT/HCPCS: J1200; J7050; Q5103

== ENCOUNTER 2019-02-06 09:53 | Outpatient (CLI) | payer MEDICARE, BC ==
[~2019-02-06] VITALS: Ht 160 cm; Wt 81.0 kg
[~2019-02-06 09:53] MED LIST changes: +IRON TABLETS325 MG PO; +TYLENOL W/COD1 UDTAB PO; +ZANTAC 150MG T150 MG PO
[2019-02-06 10:25] LABS: HEMATOCRIT 44.5 % (37.0-47.0); HEMOGLOBIN 14.6 g/dl (12.5-16.0); MEAN CELL VOLUME 96 fl (80.0-100.0); MEAN CORPUSCULAR HEMOGLOBIN 31 pg (27.0-31.0); MEAN CORPUSCULAR HGB CONC 33 g/dl (33.0-37.0); MEAN PLATELET VOLUME 8.6 fl (7.4-10.4); PLATELET COUNT 250 K/mm3 (130-400); RED BLOOD COUNT 4.65 M/mm3 (4.10-5.30); REDCELL DISTRIBUTION WIDTH-CV 12.5 % (11.5-14.5)
[2019-02-06] MEDS ORDERED: PEPCID 20MG TAB20 MG PO (10:42)
[2019-02-06 11:35] VITALS: BP 110/72; PULSE 53; TEMP 97.8
[2019-02-06 12:05] VITALS: BP 140/73; PULSE 49; TEMP 98
[2019-02-06 12:35] VITALS: BP 117/69; PULSE 51; TEMP 98.1
[2019-02-06 13:05] VITALS: BP 133/79; PULSE 53; TEMP 97.5
[2019-02-06 13:35] VITALS: BP 134/76; PULSE 55; TEMP 97.8
--- NOTE | 2019-02-06 13:45 | NUR ---
Pt quinn Inflectra well. Pt discharged per ambulation.
== END 2019-02-06 13:45 | disposition home or self-care (01) ==
LOC: EUO 09:53
PROVIDERS: Internal Medicine Gastroenterology
DX: K50.80 Crohn's disease of both small and large intestine without complications (principal); Z79.899 Other long term (current) drug therapy
CPT/HCPCS: J1200; J7050; Q5103

== ENCOUNTER 2019-04-03 13:04 | Outpatient (CLI) | payer MEDICARE, BC ==
[~2019-04-03] VITALS: Ht 160 cm; Wt 84.0 kg
[~2019-04-03 13:04] MED LIST changes: +PEPCID 20MG TAB20 MG PO
[2019-04-03 13:39] LABS: HEMATOCRIT 41.1 % (37.0-47.0); HEMOGLOBIN 13.5 g/dl (12.5-16.0); MEAN CELL VOLUME 96 fl (80.0-100.0); MEAN CORPUSCULAR HEMOGLOBIN 31 pg (27.0-31.0); MEAN CORPUSCULAR HGB CONC 33 g/dl (33.0-37.0); MEAN PLATELET VOLUME 8.4 fl (7.4-10.4); PLATELET COUNT 253 K/mm3 (130-400); REDCELL DISTRIBUTION WIDTH-CV 12.6 % (11.5-14.5)
[2019-04-03 13:49] LABS: BILIRUBIN UNCONJUGATED 0.6 mg/dL (0.0-1.1); BILIRUBIN,DIRECT 0.1 mg/dL (0.0-0.4); BILIRUBIN,TOTAL 0.7 mg/dL (0.0-1.0); TOTAL PROTEIN 7.4 gm/dL (6.4-8.2)
[2019-04-03 14:38] VITALS: BP 129/92; PULSE 61; TEMP 98.5
[2019-04-03 15:00] VITALS: BP 125/73; PULSE 67
[2019-04-03 15:30] VITALS: BP 122/76; PULSE 60; TEMP 98.5
[2019-04-03 16:00] VITALS: BP 113/66; PULSE 52; TEMP 98.2
--- NOTE | 2019-04-03 16:13 | NUR ---
Report to Gisela Wang.
[2019-04-03 16:53] VITALS: BP 106/70; PULSE 61; TEMP 98.2
== END 2019-04-03 16:54 | disposition home or self-care (01) ==
LOC: EUO 13:04
PROVIDERS: Internal Medicine Gastroenterology
DX: K50.80 Crohn's disease of both small and large intestine without complications (principal); Z79.899 Other long term (current) drug therapy
CPT/HCPCS: J1200; J7050; Q5103

== ENCOUNTER 2019-04-27 15:31 | Observation (INO) | payer MEDICARE, BC ==
[~2019-04-27] VITALS: Ht 160 cm; Wt 81.3 kg
[2019-04-27 16:08] LABS: HEMATOCRIT 45.2 % (37.0-47.0); MEAN CELL VOLUME 95 fl (80.0-100.0); MEAN CORPUSCULAR HEMOGLOBIN 32 pg (27.0-31.0); MEAN CORPUSCULAR HGB CONC 33 g/dl (33.0-37.0); MEAN PLATELET VOLUME 8.5 fl (7.4-10.4); PLATELET COUNT 266 K/mm3 (130-400); RED BLOOD COUNT 4.76 M/mm3 (4.10-5.30); REDCELL DISTRIBUTION WIDTH-CV 12.1 % (11.5-14.5)
[2019-04-27 17:05] LABS: ALANINE AMINOTRANSFERASE 65 U/L (9-52); ALBUMIN 4.6 gm/dL (3.5-5.0); ALKALINE PHOSPHATASE 84 U/L (50-136); ANION GAP 15 mmol/L (7-16); AST,SGOT 74 U/L (15-37); BILIRUBIN,TOTAL 1.1 mg/dL (0.0-1.0); BLOOD UREA NITROGEN 10 mg/dL (7-17); C-REACTIVE PROTEIN < 0.5 mg/dL (0.0-0.9); CALCIUM 9.6 mg/dL (8.4-10.2); CARBON DIOXIDE 20 mmol/L (22-30); CHLORIDE 97 mmol/L (98-107); CREATININE, serum 0.67 (0.52-1.25); GLUCOSE 94 mg/dL (74-106); LIPASE 84 U/L (23-300); POTASSIUM 3.8 mmol/L (3.4-5.0); SODIUM 132 mmol/L (137-145); TOTAL PROTEIN 8.3 gm/dL (6.4-8.2)
[2019-04-27 18:03] LABS: EOSINOPHIL 1 % (0-4); NEUTROPHILS 60 % (42.0-75.2); PLATELET ESTIMATE NORMAL (NORMAL)
[2019-04-27 18:04] LABS: LYMPHOCYTE 35 % (20.0-51.0)
[2019-04-27 19:31] VITALS: BP 140/82; PULSE 57; TEMP 97.6
--- NOTE | 2019-04-27 20:00 | NUR ---
Received report from HÉCTOR Garner. Pt arrived to the floor via wheelchair. Pt was able to ambulate to bed. was at bedside. Pt vitals were within normal limits. Pt abdomen did appear distended but was soft. Pt was alert and oriented x4. Pt was informed that she was to have nothing by mouth. Pt did state that she usually uses a CPAP at home but she refused from respiratory therapy beause she has a special mask that she uses at home. Pt did agree to use oxygen during the night. Pt asked if she could have something for pain. Pt was given pain medication at this time. She is currently lying in bed, call light is within reach and her bed is in lowest position.
[2019-04-27 21:36] VITALS: BP 140/82; PULSE 57; TEMP 97.6
--- NOTE | 2019-04-27 21:58 | NUR ---
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 She stated that when she went back for a check after the procedure, they tested the spot and it was positive for MRSA. She did inform me that she was not hospitalized for this at that time. She stated that after this she was teseted again and it was negative.
[2019-04-27 23:23] VITALS: BP 134/75; PULSE 83; TEMP 98.1
[2019-04-27 23:44] VITALS: BP 99/54; PULSE 57; TEMP 97.8
--- NOTE | 2019-04-28 01:51 | NUR ---
Pt is currently sleeing in bed. Pt has no compaints at this time. Pt call light is within reach and bed is in lowest positon
[2019-04-28 04:40] VITALS: BP 112/58; PULSE 53; TEMP 97.8
[2019-04-28 07:53] VITALS: BP 112/59; PULSE 50; TEMP 97.8
--- NOTE | 2019-04-28 08:00 | NUR ---
Patient resting in bed at this time. Patient is alert and oriented, answers questions appropriately. Patient remains NPO at this time, bowel sounds present but hypoactive. Patient reports 4/10 pain in the abdomen but declines pain medication at this time. Patient denies nausea. Call light within reach.
--- NOTE | 2019-04-28 10:45 | NUR ---
Patient lives at home in [place], [place] with her (Danilo Chowdhury [phone]) and plans to return home upon recovery. Patient is a retired administrative assistance from [employer] and is independent with daily living activities. Patient uses a CPAP machine at night, her primary care physician is Srinivasa Redman, her pharmacy is [facility], and she does not have advance directives for healthcare completed at this time. No further needs and executive secretary social welfare will follow as needed.
[2019-04-28 11:40] VITALS: BP 121/69; PULSE 55; TEMP 97.8
[2019-04-28 12:37] LABS: BASO # 0.1 (0.0-0.2); BASO % 0.6 % (0.0-2.0); EOS # 0.5 (0.0-0.7); EOS % 5.6 % (0-4.0); GRAN # 3.4 (1.4-6.5); GRAN % 40.7 % (42.2-75.2); HEMATOCRIT 40.9 % (37.0-47.0); HEMOGLOBIN 13.4 g/dl (12.5-16.0); LYMPH # 3.6 (1.2-3.4); LYMPH % 42.1 % (20.0-51.0); MEAN CORPUSCULAR HEMOGLOBIN 33 pg (27.0-31.0); MEAN CORPUSCULAR HGB CONC 33 g/dl (33.0-37.0); MEAN PLATELET VOLUME 8.7 fl (7.4-10.4); MONO # 0.9 (0.1-0.6); MONO % 10.5 % (1.7-9.3); PLATELET COUNT 214 K/mm3 (130-400); RED BLOOD COUNT 4.11 M/mm3 (4.10-5.30); REDCELL DISTRIBUTION WIDTH-CV 12.3 % (11.5-14.5)
[2019-04-28 12:52] LABS: ALBUMIN 3.6 gm/dL (3.5-5.0); BILIRUBIN,TOTAL 0.8 mg/dL (0.0-1.0); CALCIUM 8.3 mg/dL (8.4-10.2); CREATININE, serum 0.6 (0.52-1.25); MEAN CELL VOLUME 100 fl (80.0-100.0); POTASSIUM 3.8 mmol/L (3.4-5.0); TOTAL PROTEIN 6.8 gm/dL (6.4-8.2)
[2019-04-28 16:20] VITALS: BP 130/68; PULSE 56; TEMP 97.5
--- NOTE | 2019-04-28 16:59 | NUR ---
Patient continues to be independent in the room and reports mild pain in her abdomen. Patient continues to deny nausea or vomiting; patient reports she is tolerating her full liquid diet well. Call light within reach.
[2019-04-28 19:30] VITALS: BP 121/64; PULSE 56; TEMP 98.6
--- NOTE | 2019-04-28 20:00 | NUR ---
Report recevied. Assumed care for damascener. Assessment complete. VS stable. A&Ox3. Denies nausea/shortness of breath/pain. Has had a medium formed BM -green in color. Tolerating PO. NS@125ml/hr to right hand 20G. Voiding without difficulty. Denies needs. Encouraged to call for questions/concerns. Will monitor.
[2019-04-29 00:30] VITALS: BP 127/66; PULSE 55; TEMP 97.7
[2019-04-29 04:40] VITALS: BP 139/77; PULSE 51; TEMP 97.7
--- NOTE | 2019-04-29 05:30 | NUR ---
Rested better later this shift. Had issues with CPAP causing nasal dryness. Switched to 2L/NC-humidified. Did have 2 formed BMs this shift. Denies nausea/pain. Call light in reach. Will monitor.
[2019-04-29 06:41] LABS: BASO # 0.1 (0.0-0.2); EOS # 0.6 (0.0-0.7); EOS % 7.6 % (0-4.0); GRAN # 2.7 (1.4-6.5); GRAN % 35.6 % (42.2-75.2); HEMATOCRIT 38.4 % (37.0-47.0); HEMOGLOBIN 12.4 g/dl (12.5-16.0); LYMPH # 3.3 (1.2-3.4); MEAN CELL VOLUME 98 fl (80.0-100.0); MEAN CORPUSCULAR HEMOGLOBIN 32 pg (27.0-31.0); MEAN CORPUSCULAR HGB CONC 32 g/dl (33.0-37.0); MONO % 12.5 % (1.7-9.3); PLATELET COUNT 209 K/mm3 (130-400); RED BLOOD COUNT 3.92 M/mm3 (4.10-5.30); REDCELL DISTRIBUTION WIDTH-CV 12.2 % (11.5-14.5)
[2019-04-29 06:56] LABS: ALBUMIN 3.4 gm/dL (3.5-5.0); BILIRUBIN,TOTAL 0.6 mg/dL (0.0-1.0); CALCIUM 8.1 mg/dL (8.4-10.2); CREATININE, serum 0.53 (0.52-1.25); POTASSIUM 3.6 mmol/L (3.4-5.0); TOTAL PROTEIN 6.4 gm/dL (6.4-8.2)
--- NOTE | 2019-04-29 07:00 | NUR ---
Bedside shift report received from HÉCTOR Munoz. Pt resting in bed, denies needs, will continue to monitor.
[2019-04-29 07:10] VITALS: BP 138/71; PULSE 56; TEMP 98.4
--- NOTE | 2019-04-29 09:00 | NUR ---
Assessment charted. Pt resting in bed, feeling well, states she had a small BM this am. Wants to shower, anticipating discharge today, will continue to monitor.
[2019-04-29 11:27] VITALS: BP 150/81; PULSE 49; TEMP 97.7
--- NOTE | 2019-04-29 12:45 | NUR ---
First visit from the agile developer. No needs right now.
--- NOTE | 2019-04-29 15:00 | NUR ---
Discharge completed at this time. INT dc'd, tip intact. Reviewed discharge packet, answered all questions, escorted pt out by myself. Pt left wit chavez belongings, to drive home, criteria met.
== END 2019-04-29 16:40 | disposition home or self-care (01) ==
LOC: COL.ER 15:31 → SURG 18:38
PROVIDERS: Emergency Medicine; ADMIT Surgery
DX: K56.600 Partial intestinal obstruction, unspecified as to cause (principal); Z90.49 Acquired absence of other specified parts of digestive tract; Z90.710 Acquired absence of both cervix and uterus; Z88.1 Allergy status to other antibiotic agents; Z88.8 Allergy status to other drugs, medicaments and biological substances; Z79.51 Long term (current) use of inhaled steroids; Z79.891 Long term (current) use of opiate analgesic
CPT/HCPCS: G0378; J1170; J2405; J7030; Q9967

== ENCOUNTER 2019-09-18 12:53 | Outpatient (CLI) | payer MEDICARE, BC ==
[~2019-09-18] VITALS: Ht 160 cm; Wt 81.2 kg
[~2019-09-18 12:53] MED LIST changes: +TRIAMCINOLONE A15 G3 TP
[2019-09-18 13:20] LABS: HEMOGLOBIN 14.2 g/dl (12.5-16.0); MEAN CELL VOLUME 99 fl (80.0-100.0); MEAN CORPUSCULAR HEMOGLOBIN 32 pg (27.0-31.0); MEAN CORPUSCULAR HGB CONC 32 g/dl (33.0-37.0); MEAN PLATELET VOLUME 8.6 fl (7.4-10.4); PLATELET COUNT 253 K/mm3 (130-400); RED BLOOD COUNT 4.46 M/mm3 (4.10-5.30); REDCELL DISTRIBUTION WIDTH-CV 12.1 % (11.5-14.5)
[2019-09-18 13:23] VITALS: BP 127/77; PULSE 61; TEMP 98.2
[2019-09-18 14:44] VITALS: BP 135/73; PULSE 44
[2019-09-18 15:04] VITALS: BP 119/78; PULSE 44
[2019-09-18 15:30] VITALS: BP 138/89; PULSE 51
[2019-09-18 16:00] VITALS: BP 134/71; PULSE 47
[2019-09-18 16:30] VITALS: BP 147/72; PULSE 18; TEMP 98
== END 2019-09-18 16:35 | disposition home or self-care (01) ==
LOC: EUO 12:53
PROVIDERS: Internal Medicine Gastroenterology
DX: K50.80 Crohn's disease of both small and large intestine without complications (principal); Z79.899 Other long term (current) drug therapy
CPT/HCPCS: J1200; J7050; Q5103

== ENCOUNTER 2019-11-13 12:39 | Outpatient (CLI) | payer MEDICARE, BC ==
[~2019-11-13] VITALS: Ht 160 cm; Wt 83.4 kg
[2019-11-13 13:05] LABS: HEMATOCRIT 40.8 % (37.0-47.0); HEMOGLOBIN 13.7 g/dl (12.5-16.0); MEAN CELL VOLUME 96 fl (80.0-100.0); MEAN CORPUSCULAR HEMOGLOBIN 32 pg (27.0-31.0); MEAN CORPUSCULAR HGB CONC 34 g/dl (33.0-37.0); MEAN PLATELET VOLUME 8.3 fl (7.4-10.4); PLATELET COUNT 237 K/mm3 (130-400); RED BLOOD COUNT 4.27 M/mm3 (4.10-5.30); REDCELL DISTRIBUTION WIDTH-CV 12.2 % (11.5-14.5)
[2019-11-13 13:15] LABS: ALBUMIN 3.9 gm/dL (3.5-5.0); BILIRUBIN UNCONJUGATED 0.3 mg/dL (0.0-1.1); BILIRUBIN,DIRECT 0.1 mg/dL (0.0-0.4); BILIRUBIN,TOTAL 0.5 mg/dL (0.0-1.0); TOTAL PROTEIN 7.1 gm/dL (6.4-8.2)
[2019-11-13] MEDS ORDERED: ATARAX 25MG25 MG/TAB PO (13:15)
[2019-11-13 13:16] VITALS: BP 122/65; PULSE 67; TEMP 98.4
== END 2019-11-13 17:49 | disposition home or self-care (01) ==
LOC: EUO 12:39
PROVIDERS: Internal Medicine Gastroenterology
DX: K50.80 Crohn's disease of both small and large intestine without complications (principal); Z79.899 Other long term (current) drug therapy
CPT/HCPCS: J1200; J7050; Q5103

== ENCOUNTER 2020-01-08 12:50 | Outpatient (CLI) | payer MEDICARE, BC ==
[~2020-01-08] VITALS: Ht 160 cm; Wt 82.8 kg
[~2020-01-08 12:50] MED LIST changes: +ATARAX 25MG25 MG/TAB PO
[2020-01-08] MEDS ORDERED: CARAFATE 1GM1 G PO (13:23)
[2020-01-08] MEDS ORDERED: ATARAX 25MG25 MG/TAB PO (13:24)
[2020-01-08 13:38] LABS: HEMATOCRIT 42.3 % (37.0-47.0); HEMOGLOBIN 14.2 g/dl (12.5-16.0); MEAN CELL VOLUME 94 fl (80.0-100.0); MEAN CORPUSCULAR HEMOGLOBIN 32 pg (27.0-31.0); MEAN CORPUSCULAR HGB CONC 34 g/dl (33.0-37.0); MEAN PLATELET VOLUME 8.5 fl (7.4-10.4); PLATELET COUNT 251 K/mm3 (130-400); RED BLOOD COUNT 4.49 M/mm3 (4.10-5.30); REDCELL DISTRIBUTION WIDTH-CV 11.9 % (11.5-14.5)
[2020-01-08 13:40] LABS: ALBUMIN 4.1 gm/dL (3.5-5.0); BILIRUBIN UNCONJUGATED 0.4 mg/dL (0.0-1.1); BILIRUBIN,DIRECT 0.1 mg/dL (0.0-0.4); BILIRUBIN,TOTAL 0.5 mg/dL (0.0-1.0); TOTAL PROTEIN 7.3 gm/dL (6.4-8.2)
[2020-01-08 14:40] VITALS: BP 123/75; PULSE 58; TEMP 98.6
[2020-01-08 15:10] VITALS: BP 118/77; PULSE 56; TEMP 98.4
[2020-01-08 15:40] VITALS: BP 113/57; PULSE 54; TEMP 98.4
[2020-01-08 16:08] VITALS: BP 116/70; PULSE 55; TEMP 98.3
[2020-01-08 16:50] VITALS: BP 133/81; PULSE 53; TEMP 97.8
== END 2020-01-08 16:51 | disposition home or self-care (01) ==
LOC: EUO 12:50
PROVIDERS: Internal Medicine Gastroenterology
DX: K50.80 Crohn's disease of both small and large intestine without complications (principal); Z79.899 Other long term (current) drug therapy
CPT/HCPCS: J1200; J7050; Q5103

== ENCOUNTER 2020-03-05 13:00 | Outpatient (RCR) | payer MEDICARE, BC ==
[2020-03-04 13:24] LABS: ALBUMIN 3.9 gm/dL (3.5-5.0); BILIRUBIN UNCONJUGATED 0.5 mg/dL (0.0-1.1); BILIRUBIN,TOTAL 0.5 mg/dL (0.0-1.0); TOTAL PROTEIN 7.2 gm/dL (6.4-8.2)
[2020-03-04 13:45] LABS: HEMATOCRIT 42.6 % (37.0-47.0); HEMOGLOBIN 13.9 g/dl (12.5-16.0); MEAN CELL VOLUME 94 fl (80.0-100.0); MEAN CORPUSCULAR HEMOGLOBIN 31 pg (27.0-31.0); MEAN CORPUSCULAR HGB CONC 33 g/dl (33.0-37.0); MEAN PLATELET VOLUME 8.6 fl (7.4-10.4); PLATELET COUNT 263 K/mm3 (130-400); RED BLOOD COUNT 4.54 M/mm3 (4.10-5.30); REDCELL DISTRIBUTION WIDTH-CV 11.9 % (11.5-14.5)
--- NOTE | 2020-03-04 14:00 | NUR ---
pt arrived for inflectra, lab done. Pharmacy did not have medication today will have medication tommorrow. rescheduled for 1pm 03/05/20, call into office to see if blood work needs repeated due to WBC at 11.4
[~2020-03-05] VITALS: Ht 160 cm; Wt 82.8 kg
[~2020-03-05 13:00] MED LIST changes: +CARAFATE 1GM1 G PO
[2020-03-05 13:40] VITALS: BP 135/82; PULSE 64; TEMP 98.3
[2020-03-05 14:00] VITALS: BP 143/84; PULSE 61
[2020-03-05 14:30] VITALS: BP 128/78; PULSE 58; TEMP 98.3
[2020-03-05 15:00] VITALS: BP 127/78; PULSE 56
[2020-03-05 15:30] VITALS: BP 136/80; PULSE 52
[2020-03-05 16:00] VITALS: BP 129/78; PULSE 55; TEMP 97.8
== END 2020-03-05 16:30 | disposition home or self-care (01) ==
LOC: EDSTATUS 13:00 → EUO 13:00
PROVIDERS: Internal Medicine Gastroenterology
DX: K50.80 Crohn's disease of both small and large intestine without complications (principal); Z79.899 Other long term (current) drug therapy
CPT/HCPCS: J1200; J7050; Q5103

== ENCOUNTER 2020-04-29 12:55 | Outpatient (CLI) | payer MEDICARE, BC ==
[~2020-04-29] VITALS: Ht 160 cm; Wt 81.8 kg
[~2020-04-29 12:55] MED LIST changes: -MULTIPLE VITAMI1 CAP PO; +MULTIPLE VITAMI1 TA5 PO
[2020-04-29 13:13] LABS: HEMATOCRIT 42.9 % (37.0-47.0); HEMOGLOBIN 14.3 g/dl (12.5-16.0); MEAN CELL VOLUME 93 fl (80.0-100.0); MEAN CORPUSCULAR HEMOGLOBIN 31 pg (27.0-31.0); MEAN CORPUSCULAR HGB CONC 33 g/dl (33.0-37.0); MEAN PLATELET VOLUME 8.5 fl (7.4-10.4); PLATELET COUNT 242 K/mm3 (130-400); RED BLOOD COUNT 4.61 M/mm3 (4.10-5.30); REDCELL DISTRIBUTION WIDTH-CV 12.2 % (11.5-14.5)
[2020-04-29 14:37] VITALS: BP 90/66; PULSE 41; TEMP 98.2
[2020-04-29 15:00] VITALS: BP 132/80; PULSE 55; TEMP 98.2
[2020-04-29 15:30] VITALS: BP 142/82; PULSE 56; TEMP 98.2
[2020-04-29 16:00] VITALS: BP 137/80; PULSE 55; TEMP 98.2
[2020-04-29 16:30] VITALS: BP 149/83; PULSE 48; TEMP 98.2
== END 2020-04-29 16:35 | disposition home or self-care (01) ==
LOC: EUO
PROVIDERS: Internal Medicine Gastroenterology
DX: K50.80 Crohn's disease of both small and large intestine without complications (principal); Z79.899 Other long term (current) drug therapy
CPT/HCPCS: J1200; J7050; Q5103

== ENCOUNTER 2020-06-29 14:54 | Outpatient (CLI) | payer MEDICARE, BC ==
[~2020-06-29] VITALS: Ht 160 cm; Wt 83.3 kg
[2020-06-29 15:26] LABS: HEMATOCRIT 42.5 % (37.0-47.0); HEMOGLOBIN 14.1 g/dl (12.5-16.0); MEAN CELL VOLUME 92 fl (80.0-100.0); MEAN CORPUSCULAR HEMOGLOBIN 31 pg (27.0-31.0); MEAN CORPUSCULAR HGB CONC 33 g/dl (33.0-37.0); MEAN PLATELET VOLUME 8.3 fl (7.4-10.4); PLATELET COUNT 286 K/mm3 (130-400); RED BLOOD COUNT 4.63 M/mm3 (4.10-5.30); REDCELL DISTRIBUTION WIDTH-CV 12.2 % (11.5-14.5)
[2020-06-29 15:37] VITALS: BP 137/90; PULSE 63; TEMP 98.5
[2020-06-29 15:42] LABS: ALBUMIN 4.3 gm/dL (3.5-5.0); BILIRUBIN,TOTAL 0.4 mg/dL (0.0-1.0)
[2020-06-29] MEDS ORDERED: PEPCID 20MG TAB20 MG PO (16:04)
[2020-06-29] MEDS ORDERED: TUMS500 MG PO (16:05)
[2020-06-29] MEDS ORDERED: MASON NATURAL2000 IU PO (16:05)
[2020-06-29 16:23] VITALS: BP 136/76; PULSE 53
[2020-06-29 16:27] LABS: BILIRUBIN UNCONJUGATED 0.5 mg/dL (0.0-1.1)
[2020-06-29 16:54] VITALS: BP 125/77; PULSE 57
[2020-06-29 17:24] VITALS: BP 133/82; PULSE 58
[2020-06-29 17:54] VITALS: BP 142/83; PULSE 54
[2020-06-29 18:30] VITALS: BP 132/78; PULSE 52; TEMP 98.5
== END 2020-06-29 18:36 | disposition home or self-care (01) ==
LOC: EUO 14:54
PROVIDERS: Internal Medicine Gastroenterology
DX: K50.80 Crohn's disease of both small and large intestine without complications (principal); Z79.899 Other long term (current) drug therapy
CPT/HCPCS: J1200; J7050; Q5103

== ENCOUNTER 2020-08-08 23:18 | Observation (INO) | payer MEDICARE, BC ==
[~2020-08-08] VITALS: Ht 160 cm; Wt 81.0 kg
[~2020-08-08 23:18] MED LIST changes: +TUMS500 MG PO
[2020-08-08 23:58] LABS: BASO # 0.1 (0.0-0.2); BASO % 0.5 % (0.0-2.0); EOS # 0.4 (0.0-0.7); EOS % 3.2 % (0-4.0); GRAN # 6.8 (1.4-6.5); GRAN % 55.7 % (42.2-75.2); HEMATOCRIT 47.8 % (37.0-47.0); HEMOGLOBIN 15.6 g/dl (12.5-16.0); LYMPH # 3.8 (1.2-3.4); LYMPH % 31.4 % (20.0-51.0); MEAN CELL VOLUME 93 fl (80.0-100.0); MEAN CORPUSCULAR HEMOGLOBIN 31 pg (27.0-31.0); MEAN CORPUSCULAR HGB CONC 33 g/dl (33.0-37.0); MEAN PLATELET VOLUME 8.6 fl (7.4-10.4); MONO % 8.5 % (1.7-9.3); PLATELET COUNT 281 K/mm3 (130-400); RED BLOOD COUNT 5.12 M/mm3 (4.10-5.30); REDCELL DISTRIBUTION WIDTH-CV 12.3 % (11.5-14.5)
[2020-08-09 00:10] LABS: ALBUMIN 4.6 gm/dL (3.5-5.0); BILIRUBIN,TOTAL 0.9 mg/dL (0.0-1.0); CALCIUM 9.3 mg/dL (8.4-10.2); CREATININE, serum 0.63 (0.52-1.25); POTASSIUM 3.6 mmol/L (3.4-5.0); TOTAL PROTEIN 8.9 gm/dL (6.4-8.2)
[2020-08-09 00:44] LABS: PROTHROMBIN TIME 10.8 SECONDS (9.7-12.8)
[2020-08-09 00:47] LABS: PARTIAL THROMBOPLASTIN TIME > 400.0 SECONDS (26.0-37.0)
[2020-08-09 02:09] LABS: INR 1.1 (0.8-3.0); PROTHROMBIN TIME 11.7 SECONDS (9.7-12.8)
[2020-08-09 02:11] LABS: PARTIAL THROMBOPLASTIN TIME 28.8 SECONDS (26.0-37.0)
[2020-08-09] MEDS ORDERED: NORVASC 5MG5 MG/TAB PO (03:42)
[2020-08-09] MEDS ORDERED: RT ADVAIR 128 DISKUS IH (03:43)
[2020-08-09 04:00] VITALS: BP 143/73; PULSE 54; TEMP 97.9
[2020-08-09 04:08] LABS: COLLECTION METHOD CLEAN CATCH
[2020-08-09 04:13] LABS: PH 6 (5-8); SQUAMOUS EPITHELIAL 0-2 /hpf; URINE APPEARANCE Clear; URINE BACTERIA None Seen /hpf; URINE BILIRUBIN Negative (NEGATIVE); URINE BLOOD Negative (NEGATIVE); URINE COLOR Straw; URINE GLUCOSE Negative (NEGATIVE); URINE KETONE Trace (NEGATIVE); URINE LEUKOCYTE ESTERASE Trace (NEGATIVE); URINE NITRATE Negative (NEGATIVE); URINE PROTEIN(semi-quant) Negative (NEGATIVE); URINE RBC None Seen /hpf; URINE UROBILINOGEN Negative (NEGATIVE); URINE WBC 0-2 /hpf
--- NOTE | 2020-08-09 05:00 | NUR ---
PT ARRIVES TO ROOM 323 VIA W/C FROM ED. IS ALERT AND ORIENTED X4. HAS IVF TO LEFT AC WITHOUT REDNESS OR SWELLING. REPORTS PAIN TO ABD 0/10 AT THIS TIME. BS ACTIVE. DENIES NAUSEA AT THIS TIME. ORIENTED TO ROOM AND BED CONTROLS/CALL LIGHT.
--- NOTE | 2020-08-09 05:30 | NUR ---
PT WEARS CPAP AT HOME, DID NOT BRING. PLACED ON OXYGEN AT 2L/NC FOR COMFORT.
[2020-08-09 08:50] VITALS: BP 115/63; PULSE 52; TEMP 98
[2020-08-09 09:29] LABS: BASO % 0.4 % (0.0-2.0); EOS # 0.3 (0.0-0.7); EOS % 2.6 % (0-4.0); GRAN # 5.5 (1.4-6.5); GRAN % 49.2 % (42.2-75.2); LYMPH # 4.3 (1.2-3.4); LYMPH % 38.3 % (20.0-51.0); MEAN CELL VOLUME 95 fl (80.0-100.0); MEAN CORPUSCULAR HEMOGLOBIN 31 pg (27.0-31.0); MEAN CORPUSCULAR HGB CONC 33 g/dl (33.0-37.0); MEAN PLATELET VOLUME 8.6 fl (7.4-10.4); MONO % 9.1 % (1.7-9.3); PLATELET COUNT 233 K/mm3 (130-400); RED BLOOD COUNT 4.31 M/mm3 (4.10-5.30); REDCELL DISTRIBUTION WIDTH-CV 12.6 % (11.5-14.5)
[2020-08-09 09:36] LABS: HEMOGLOBIN 13.4 g/dl (12.5-16.0)
[2020-08-09 09:39] LABS: CALCIUM 8.4 mg/dL (8.4-10.2); CREATININE, serum 0.57 (0.52-1.25); POTASSIUM 3.8 mmol/L (3.4-5.0)
--- NOTE | 2020-08-09 10:00 | NUR ---
Patient alert and oriented, answers questions appropriately. See assessment. Abdomen soft, non tender, non distended. Bowel sounds active x4 quads. +Flatus. +Bowel movement. No c/o abdominal pain or pressure. Requests food. No other c/o at this time.
--- NOTE | 2020-08-09 10:14 | NUR ---
Dr Molina here to see patient.
[2020-08-09 12:00] VITALS: BP 115/68; PULSE 55; TEMP 98.5
--- NOTE | 2020-08-09 15:07 | NUR ---
SW met with patient to complete intake. Patient states that she lives with her spouse Danilo [phone] in [place], [place]. patient states that she does not utilize DME and is independent with ADLs. Patient provides that her PCP is Dr. Brooks, pharmacy is [facility], and is able to afford her medications. Patient provides that she does not have anyone appointed as her DPOA-HC and did not wish to appoint anyone at this time. Patient's plan is to go back to her home upon DC. SW will continue to follow. Plan: Home with spouse
[2020-08-09 15:55] VITALS: BP 129/69; PULSE 49; TEMP 50
--- NOTE | 2020-08-09 16:42 | NUR ---
Discharge instructions reviewed with patient and spouse, verbalized understanding. Discharged via wheelchair to auto/home with spouse at 1640.
== END 2020-08-09 16:40 | disposition home or self-care (01) ==
LOC: COL.ER 23:18 → SURG 08-09 04:00
PROVIDERS: Emergency Medicine; Surgery; ADMIT Surgery
DX: R10.9 Unspecified abdominal pain (principal); I10 Essential (primary) hypertension; K21.9 Gastro-esophageal reflux disease without esophagitis; J45.909 Unspecified asthma, uncomplicated; E03.9 Hypothyroidism, unspecified; M72.2 Plantar fascial fibromatosis; Z79.899 Other long term (current) drug therapy
CPT/HCPCS: G0378; J2270; J2405; J7030; J7120; Q9967

== ENCOUNTER 2020-09-01 12:59 | Outpatient (CLI) | payer MEDICARE, BC ==
[~2020-09-01] VITALS: Ht 160 cm; Wt 76.0 kg
[~2020-09-01 12:59] MED LIST changes: +NORVASC 5MG5 MG/TAB PO; +RT ADVAIR 128 DISKUS IH
[2020-09-01 13:27] LABS: BASO % 0.2 % (0.0-2.0); EOS # 0.4 (0.0-0.7); EOS % 4.2 % (0-4.0); GRAN # 3.4 (1.4-6.5); GRAN % 38.8 % (42.2-75.2); HEMOGLOBIN 14.3 g/dl (12.5-16.0); LYMPH # 4.3 (1.2-3.4); LYMPH % 48.1 % (20.0-51.0); MEAN CELL VOLUME 95 fl (80.0-100.0); MEAN CORPUSCULAR HEMOGLOBIN 31 pg (27.0-31.0); MEAN CORPUSCULAR HGB CONC 33 g/dl (33.0-37.0); MEAN PLATELET VOLUME 8.9 fl (7.4-10.4); MONO # 0.7 (0.1-0.6); MONO % 8.4 % (1.7-9.3); PLATELET COUNT 206 K/mm3 (130-400); RED BLOOD COUNT 4.63 M/mm3 (4.10-5.30); REDCELL DISTRIBUTION WIDTH-CV 12.8 % (11.5-14.5)
[2020-09-01 14:30] VITALS: BP 100/68; PULSE 68; TEMP 98.6
[2020-09-01 15:00] VITALS: BP 112/75; PULSE 59
[2020-09-01 15:24] VITALS: BP 109/72; PULSE 63
[2020-09-01 15:30] VITALS: BP 116/72; PULSE 59
[2020-09-01 16:00] VITALS: BP 122/70; PULSE 62
[2020-09-01 16:30] VITALS: BP 114/71; PULSE 62
== END 2020-09-01 16:52 | disposition home or self-care (01) ==
LOC: EUO 12:59
PROVIDERS: Internal Medicine Gastroenterology
DX: K50.00 Crohn's disease of small intestine without complications (principal); Z79.899 Other long term (current) drug therapy
CPT/HCPCS: J1200; J7050; Q5103

== ENCOUNTER 2020-10-28 12:47 | Outpatient (CLI) | payer MEDICARE, BC ==
[~2020-10-28] VITALS: Ht 160 cm; Wt 81.1 kg
[2020-10-28 13:13] LABS: HEMATOCRIT 44.9 % (37.0-47.0); HEMOGLOBIN 14.6 g/dl (12.5-16.0); MEAN CELL VOLUME 96 fl (80.0-100.0); MEAN CORPUSCULAR HEMOGLOBIN 31 pg (27.0-31.0); MEAN CORPUSCULAR HGB CONC 33 g/dl (33.0-37.0); MEAN PLATELET VOLUME 8.9 fl (7.4-10.4); PLATELET COUNT 255 K/mm3 (130-400); REDCELL DISTRIBUTION WIDTH-CV 12.7 % (11.5-14.5)
[2020-10-28 13:47] LABS: ALBUMIN 4.1 gm/dL (3.5-5.0); BILIRUBIN UNCONJUGATED 0.3 mg/dL (0.0-1.1); BILIRUBIN,TOTAL 0.2 mg/dL (0.0-1.0); TOTAL PROTEIN 7.8 gm/dL (6.4-8.2)
[2020-10-28 14:00] VITALS: BP 114/74; PULSE 69; TEMP 98.1
[2020-10-28 14:30] VITALS: BP 119/66; PULSE 53
[2020-10-28 15:00] VITALS: BP 114/68; PULSE 60
[2020-10-28 15:30] VITALS: BP 107/69; PULSE 53
[2020-10-28 16:00] VITALS: BP 109/70; PULSE 58
== END 2020-10-28 16:30 | disposition home or self-care (01) ==
LOC: EUO 12:47
PROVIDERS: Internal Medicine Gastroenterology
DX: K50.00 Crohn's disease of small intestine without complications (principal); Z79.899 Other long term (current) drug therapy
CPT/HCPCS: J1200; J7050; Q5103

== ENCOUNTER 2020-12-23 12:50 | Outpatient (CLI) | payer MEDICARE, BC ==
[~2020-12-23] VITALS: Ht 160 cm; Wt 81.1 kg
[2020-12-23 13:28] LABS: HEMOGLOBIN 14.5 g/dl (12.5-16.0); MEAN CELL VOLUME 97 fl (80.0-100.0); MEAN CORPUSCULAR HEMOGLOBIN 31 pg (27.0-31.0); MEAN CORPUSCULAR HGB CONC 32 g/dl (33.0-37.0); MEAN PLATELET VOLUME 9.1 fl (7.4-10.4); PLATELET COUNT 265 K/mm3 (130-400); RED BLOOD COUNT 4.66 M/mm3 (4.10-5.30); REDCELL DISTRIBUTION WIDTH-CV 12.6 % (11.5-14.5)
[2020-12-23 13:43] LABS: ALBUMIN 3.6 gm/dL (3.4-4.8); BILIRUBIN,DIRECT 0.2 mg/dL (0.0-0.5); BILIRUBIN,TOTAL 0.6 mg/dL (0.2-1.2); TOTAL PROTEIN 7.3 gm/dL (6.2-8.1)
[2020-12-23 14:30] VITALS: BP 111/65; PULSE 57; TEMP 98.5
[2020-12-23 14:45] VITALS: BP 107/73; PULSE 57
[2020-12-23 15:00] VITALS: BP 109/70; PULSE 57
[2020-12-23 15:15] VITALS: BP 110/65; PULSE 57
[2020-12-23 15:30] VITALS: BP 96/87; PULSE 61
[2020-12-23 16:00] VITALS: BP 105/71; PULSE 67
== END 2020-12-23 16:45 | disposition home or self-care (01) ==
LOC: EUO 12:50
PROVIDERS: Internal Medicine Gastroenterology
DX: K50.00 Crohn's disease of small intestine without complications (principal)
CPT/HCPCS: J1200; J7050; Q5103

== ENCOUNTER 2021-02-24 12:42 | Outpatient (CLI) | payer MEDICARE, BC ==
[2021-02-24 13:26] LABS: HEMOGLOBIN 11.5 g/dl (12.5-16.0); MEAN CELL VOLUME 95 fl (80.0-100.0); MEAN CORPUSCULAR HEMOGLOBIN 31 pg (27-31); MEAN CORPUSCULAR HGB CONC 33 g/dl (33.0-37.0); MEAN PLATELET VOLUME 8.7 fl (7.4-10.4); PLATELET COUNT 303 K/mm3 (130-400); RED BLOOD COUNT 3.69 M/mm3 (4.10-5.30); REDCELL DISTRIBUTION WIDTH-CV 12.7 % (11.5-14.5)
[2021-02-24 13:27] LABS: HEMATOCRIT 35.2 % (37.0-47.0)
[2021-02-24 13:50] VITALS: BP 111/74; PULSE 63; TEMP 98.1
[2021-02-24 13:50] LABS: ALBUMIN 3.5 gm/dL (3.4-4.8); BILIRUBIN,DIRECT 0.2 mg/dL (0.0-0.5); BILIRUBIN,TOTAL 0.4 mg/dL (0.2-1.2); TOTAL PROTEIN 6.7 gm/dL (6.2-8.1)
[2021-02-24 14:25] VITALS: BP 119/73; PULSE 54
[2021-02-24 14:55] VITALS: BP 104/70; PULSE 53
[2021-02-24 15:25] VITALS: BP 108/71; PULSE 58
[2021-02-24 15:55] VITALS: BP 108/61; PULSE 63
[2021-02-24 16:25] VITALS: BP 107/71; PULSE 58
== END 2021-02-24 18:01 | disposition home or self-care (01) ==
LOC: EUO 12:42
PROVIDERS: Internal Medicine Gastroenterology
DX: K50.00 Crohn's disease of small intestine without complications (principal)
CPT/HCPCS: J1200; J7050; Q5103

== ENCOUNTER 2021-04-02 19:11 | Emergency (ER) | payer MEDICARE, BC ==
[~2021-04-02] VITALS: Ht 160 cm; Wt 80.0 kg
[2021-04-02 19:31] VITALS: TEMP 98.6
[2021-04-02 20:16] LABS: BASO # 0.1 K/mm3 (0.0-0.2); BASO % 0.5 % (0.0-2.0); EOS # 0.3 K/mm3 (0.0-0.7); EOS % 1.8 % (0.0-4.0); GRAN # 7.9 K/mm3 (1.4-6.5); GRAN % 54.2 % (42.2-75.2); HEMATOCRIT 41.5 % (37.0-47.0); HEMOGLOBIN 13.8 g/dl (12.5-16.0); LYMPH # 5.2 K/mm3 (1.2-3.4); LYMPH % 35.4 % (20.0-51.0); MEAN CELL VOLUME 91 fl (80.0-100.0); MEAN CORPUSCULAR HEMOGLOBIN 30 pg (27-31); MEAN CORPUSCULAR HGB CONC 33 g/dl (33.0-37.0); MEAN PLATELET VOLUME 8.6 fl (7.4-10.4); MONO # 1.1 K/mm3 (0.1-0.6); MONO % 7.8 % (1.7-9.3); PLATELET COUNT 356 K/mm3 (130-400); RED BLOOD COUNT 4.55 M/mm3 (4.10-5.30); REDCELL DISTRIBUTION WIDTH-CV 12.6 % (11.5-14.5)
[2021-04-02 20:24] LABS: ALBUMIN 4.1 gm/dL (3.4-4.8); BILIRUBIN,TOTAL 0.7 mg/dL (0.2-1.2); CREATININE, serum 0.74 mg/dL (0.57-1.11); POTASSIUM 3.6 mmol/L (3.5-4.5); TOTAL PROTEIN 7.7 gm/dL (6.2-8.1)
[2021-04-02 20:27] LABS: C-REACTIVE PROTEIN 0.22 mg/dL (0.00-0.50)
[2021-04-03] MEDS ORDERED: NORCO 325 MG-51 TAB PO (00:14)
[2021-04-03] MEDS ORDERED: ZOFRAN ODT4 MG PO (00:17)
[2021-04-03 00:25] VITALS: BP 128/85; PULSE 72
== END 2021-04-03 00:25 | disposition home or self-care (01) ==
LOC: COL.ER 19:11
PROVIDERS: Physician Assistant
DX: K50.90 Crohn's disease, unspecified, without complications (principal); Z98.890 Other specified postprocedural states
CPT/HCPCS: J2270; J2405; J2550; J7030; Q9967

== ENCOUNTER 2021-04-09 21:59 | Emergency (ER) | payer MEDICARE, BC ==
[~2021-04-09] VITALS: Ht 160 cm; Wt 80.0 kg
[2021-04-10] MEDS ORDERED: NORCO 325 MG-51 TAB PO (00:32)
[2021-04-10 00:49] VITALS: BP 158/91; PULSE 89; TEMP 98
== END 2021-04-10 00:49 | disposition home or self-care (01) ==
LOC: COL.ER 21:59
DX: S42.201A Unspecified fracture of upper end of right humerus, initial encounter for closed fracture (principal); K21.9 Gastro-esophageal reflux disease without esophagitis; J44.9 Chronic obstructive pulmonary disease, unspecified; I10 Essential (primary) hypertension; E03.9 Hypothyroidism, unspecified; Z79.899 Other long term (current) drug therapy; Z79.890 Hormone replacement therapy; Z79.51 Long term (current) use of inhaled steroids; W01.0XXA Fall on same level from slipping, tripping and stumbling without subsequent striking against object, initial encounter
CPT/HCPCS: J2270

== ENCOUNTER 2021-04-21 12:49 | Outpatient (CLI) | payer MEDICARE, BC ==
[~2021-04-21] VITALS: Ht 160 cm; Wt 82.2 kg
[2021-04-21] VITALS (10 sets, daily range): BP systolic 103–130; BP diastolic 64–97; PULSE 52–86; TEMP 98
[2021-04-21 13:21] LABS: HEMATOCRIT 39.4 % (37.0-47.0); HEMOGLOBIN 12.4 g/dl (12.5-16.0); MEAN CELL VOLUME 92 fl (80.0-100.0); MEAN CORPUSCULAR HEMOGLOBIN 29 pg (27-31); MEAN CORPUSCULAR HGB CONC 32 g/dl (33.0-37.0); MEAN PLATELET VOLUME 8.2 fl (7.4-10.4); PLATELET COUNT 373 K/mm3 (130-400); RED BLOOD COUNT 4.29 M/mm3 (4.10-5.30); REDCELL DISTRIBUTION WIDTH-CV 13.5 % (11.5-14.5)
[2021-04-21 13:35] LABS: ALBUMIN 3.5 gm/dL (3.4-4.8); BILIRUBIN,DIRECT 0.2 mg/dL (0.0-0.5); BILIRUBIN,TOTAL 0.4 mg/dL (0.2-1.2)
[2021-04-21 14:24] LABS: EOSINOPHIL 1 % (0-4); LYMPHOCYTE 37 % (20.0-51.0); NEUTROPHILS 56 % (42.0-75.2)
[2021-04-21 14:25] LABS: HYPOCHROMIA 2+; PLATELET ESTIMATE NORMAL (NORMAL)
[2021-04-21] MEDS ORDERED: UCERIS PO (14:35)
== END 2021-04-21 17:27 ==
LOC: EUO 12:49
PROVIDERS: Internal Medicine Gastroenterology
DX: K50.90 Crohn's disease, unspecified, without complications (principal)
CPT/HCPCS: J1200; J7050; Q5103

== ENCOUNTER 2021-08-11 11:32 | Outpatient (CLI) | payer MEDICARE, BC ==
[~2021-08-11] VITALS: Ht 160 cm; Wt 82.8 kg
[~2021-08-11 11:32] MED LIST changes: +UCERIS PO
[2021-08-11 12:17] LABS: BASO # 0.1 K/mm3 (0.0-0.2); BASO % 0.7 % (0.0-2.0); EOS # 0.5 K/mm3 (0.0-0.7); EOS % 5.3 % (0.0-4.0); GRAN # 3.6 K/mm3 (1.4-6.5); GRAN % 39.1 % (42.2-75.2); HEMOGLOBIN 14.7 g/dl (12.5-16.0); LYMPH % 43.2 % (20.0-51.0); MEAN CELL VOLUME 96 fl (80.0-100.0); MEAN CORPUSCULAR HEMOGLOBIN 31 pg (27-31); MEAN CORPUSCULAR HGB CONC 33 g/dl (33.0-37.0); MEAN PLATELET VOLUME 8.6 fl (7.4-10.4); MONO % 11.3 % (1.7-9.3); PLATELET COUNT 376 K/mm3 (130-400); RED BLOOD COUNT 4.69 M/mm3 (4.10-5.30); REDCELL DISTRIBUTION WIDTH-CV 13.1 % (11.5-14.5)
[2021-08-11 12:27] LABS: ALBUMIN 3.5 gm/dL (3.4-4.8); BILIRUBIN,TOTAL 0.7 mg/dL (0.2-1.2)
[2021-08-11 12:43] LABS: BILIRUBIN,DIRECT 0.3 mg/dL (0.0-0.5)
[2021-08-11 14:44] VITALS: BP 108/69; PULSE 57
[2021-08-11 14:59] VITALS: BP 104/69; PULSE 50; TEMP 98.2
[2021-08-11 15:16] VITALS: BP 112/60; PULSE 46
[2021-08-11 15:30] VITALS: BP 109/60; PULSE 45
[2021-08-11 15:46] VITALS: BP 108/62; PULSE 50
[2021-08-11 15:59] VITALS: BP 103/69; PULSE 51
== END 2021-08-11 17:20 ==
LOC: EUO 11:32
PROVIDERS: Internal Medicine Gastroenterology
DX: K50.90 Crohn's disease, unspecified, without complications (principal)
CPT/HCPCS: J1200; J7040; Q5103

== ENCOUNTER 2021-10-06 12:49 | Outpatient (CLI) | payer MEDICARE, BC ==
[~2021-10-06] VITALS: Ht 160 cm; Wt 83.0 kg
[~2021-10-06 12:49] MED LIST changes: +ENTOCORT EC3 MG PO; -UCERIS PO
[2021-10-06 13:23] LABS: BASO # 0.1 K/mm3 (0.0-0.2); BASO % 0.5 % (0.0-2.0); EOS # 0.5 K/mm3 (0.0-0.7); GRAN # 3.8 K/mm3 (1.4-6.5); GRAN % 36.1 % (42.2-75.2); HEMATOCRIT 46.2 % (37.0-47.0); LYMPH # 4.9 K/mm3 (1.2-3.4); LYMPH % 47.2 % (20.0-51.0); MEAN CELL VOLUME 97 fl (80.0-100.0); MEAN CORPUSCULAR HEMOGLOBIN 32 pg (27-31); MEAN CORPUSCULAR HGB CONC 33 g/dl (33.0-37.0); MEAN PLATELET VOLUME 8.7 fl (7.4-10.4); MONO # 1.1 K/mm3 (0.1-0.6); MONO % 10.8 % (1.7-9.3); PLATELET COUNT 337 K/mm3 (130-400); RED BLOOD COUNT 4.75 M/mm3 (4.10-5.30); REDCELL DISTRIBUTION WIDTH-CV 12.6 % (11.5-14.5)
[2021-10-06 13:37] LABS: ALBUMIN 3.8 gm/dL (3.4-4.8); BILIRUBIN,DIRECT 0.3 mg/dL (0.0-0.5); BILIRUBIN,TOTAL 0.6 mg/dL (0.2-1.2); TOTAL PROTEIN 7.2 gm/dL (6.2-8.1)
[2021-10-06 14:31] VITALS: BP 119/71; PULSE 48; TEMP 98.8
[2021-10-06 15:00] VITALS: BP 118/72; PULSE 50
[2021-10-06 15:30] VITALS: BP 121/70; PULSE 54
[2021-10-06 16:00] VITALS: BP 125/73; PULSE 54
[2021-10-06 16:30] VITALS: BP 125/73; PULSE 54
== END 2021-10-06 17:41 | disposition home or self-care (01) ==
LOC: EUO 12:49
PROVIDERS: Internal Medicine Gastroenterology
DX: K50.90 Crohn's disease, unspecified, without complications (principal)
CPT/HCPCS: J1200; J7050; Q5103

== ENCOUNTER 2022-05-25 13:46 | Outpatient (CLI) | payer MEDICARE, BC ==
[~2022-05-25] VITALS: Ht 160 cm; Wt 78.6 kg
[2022-05-25 13:36] VITALS: BP 125/67; PULSE 63; TEMP 97.5
[2022-05-25 13:44] LABS: BASO # 0.1 K/mm3 (0.0-0.2); BASO % 0.8 % (0.0-2.0); EOS # 0.7 K/mm3 (0.0-0.7); EOS % 6.6 % (0.0-4.0); GRAN # 3.6 K/mm3 (1.4-6.5); GRAN % 35.9 % (42.2-75.2); HEMATOCRIT 44.7 % (37.0-47.0); HEMOGLOBIN 14.7 g/dl (12.5-16.0); LYMPH # 4.6 K/mm3 (1.2-3.4); LYMPH % 46.2 % (20.0-51.0); MEAN CELL VOLUME 95 fl (80.0-100.0); MEAN CORPUSCULAR HEMOGLOBIN 31 pg (27-31); MEAN CORPUSCULAR HGB CONC 33 g/dl (33.0-37.0); MEAN PLATELET VOLUME 8.3 fl (7.4-10.4); MONO % 10.2 % (1.7-9.3); PLATELET COUNT 405 K/mm3 (130-400); RED BLOOD COUNT 4.71 M/mm3 (4.10-5.30); REDCELL DISTRIBUTION WIDTH-CV 13.1 % (11.5-14.5)
[~2022-05-25 13:46] MED LIST changes: +DUPIXENT P300 MG/2 M SQ
[2022-05-25 14:06] LABS: ALBUMIN 3.8 gm/dL (3.4-4.8); BILIRUBIN,DIRECT 0.2 mg/dL (0.0-0.5); BILIRUBIN,TOTAL 0.7 mg/dL (0.2-1.2); TOTAL PROTEIN 7.2 gm/dL (6.2-8.1)
[2022-05-25 14:30] VITALS: BP 118/69; PULSE 52
[2022-05-25 15:00] VITALS: BP 108/61; PULSE 50
[2022-05-25 15:30] VITALS: BP 107/62; PULSE 54
[2022-05-25 16:00] VITALS: BP 113/71; PULSE 50
[2022-05-25 16:30] VITALS: BP 120/69; PULSE 54
--- NOTE | 2022-05-25 17:03 | NUR ---
Pt discharged at approx 1645. she tolerated her inflectra infusion well and her VS remained within normal limits throughout the duration of the infusion. she continued to tolerate po fluids throughout her infusion and was free from questions or concerns at time of discharge. she took both Tylenol and Benadryl for pre-medication and had no complications following either medication. she ambulated independently to [facility] upon discharge.
== END 2022-05-25 16:45 | disposition home or self-care (01) ==
LOC: EUO 13:46
PROVIDERS: Internal Medicine Gastroenterology
DX: K50.812 Crohn's disease of both small and large intestine with intestinal obstruction (principal)
CPT/HCPCS: J1200; J7050; Q5103

== ENCOUNTER 2022-07-20 12:54 | Outpatient (CLI) | payer MEDICARE, BC ==
[~2022-07-20] VITALS: Ht 160 cm; Wt 77.9 kg
[2022-07-20 13:15] LABS: HEMATOCRIT 45.9 % (37.0-47.0); HEMOGLOBIN 15.4 g/dl (12.5-16.0); MEAN CELL VOLUME 95 fl (80.0-100.0); MEAN CORPUSCULAR HEMOGLOBIN 32 pg (27-31); MEAN CORPUSCULAR HGB CONC 34 g/dl (33.0-37.0); MEAN PLATELET VOLUME 8.4 fl (7.4-10.4); PLATELET COUNT 320 K/mm3 (130-400); RED BLOOD COUNT 4.85 M/mm3 (4.10-5.30); REDCELL DISTRIBUTION WIDTH-CV 12.3 % (11.5-14.5)
[2022-07-20 14:05] LABS: EOSINOPHIL 5 % (0-4); NEUTROPHILS 33 % (42.0-75.2)
[2022-07-20 14:06] LABS: PLATELET ESTIMATE NORMAL (NORMAL)
[2022-07-20 14:07] LABS: LYMPHOCYTE 53 % (20.0-51.0)
[2022-07-20 15:10] VITALS: BP 124/70; PULSE 57; TEMP 98.5
[2022-07-20 15:30] VITALS: BP 107/78; PULSE 63
[2022-07-20 16:00] VITALS: BP 113/65; PULSE 56
[2022-07-20 16:30] VITALS: BP 120/67; PULSE 59
[2022-07-20 17:00] VITALS: BP 111/74; PULSE 56
== END 2022-07-20 17:21 ==
LOC: EUO 12:54
PROVIDERS: Internal Medicine Gastroenterology
DX: K50.812 Crohn's disease of both small and large intestine with intestinal obstruction (principal)
CPT/HCPCS: J1200; J7050; Q5103

== ENCOUNTER 2022-11-03 | Inpatient (IN) | payer MEDICARE, BC ==
[2022-11-03] VITALS (8 sets, daily range): BP systolic 117–143; BP diastolic 51–67; PULSE 46–55; TEMP 97.5–97.9
[~2022-11-03] VITALS: Ht 160 cm; Wt 75.9 kg
[2022-11-03 00:21] LABS: HEMATOCRIT 49.8 % (37.0-47.0); HEMOGLOBIN 16.2 g/dl (12.5-16.0); MEAN CELL VOLUME 95 fl (80.0-100.0); MEAN CORPUSCULAR HEMOGLOBIN 31 pg (27-31); MEAN CORPUSCULAR HGB CONC 33 g/dl (33.0-37.0); MEAN PLATELET VOLUME 8.4 fl (7.4-10.4); PLATELET COUNT 313 K/mm3 (130-400); RED BLOOD COUNT 5.22 M/mm3 (4.10-5.30); REDCELL DISTRIBUTION WIDTH-CV 12.7 % (11.5-14.5)
[2022-11-03 00:39] LABS: PROTHROMBIN TIME 11.2 SECONDS (9.7-12.8)
[2022-11-03 00:40] LABS: ALBUMIN 4.1 gm/dL (3.4-4.8); BILIRUBIN,TOTAL 1.1 mg/dL (0.2-1.2); CALCIUM 9.4 mg/dL (8.4-10.2); CREATININE, serum 0.74 mg/dL (0.57-1.11); POTASSIUM 3.7 mmol/L (3.5-4.5)
[2022-11-03 00:42] LABS: EOSINOPHIL 4 % (0-4); LYMPHOCYTE 39 % (20.0-51.0); NEUTROPHILS 52 % (42.0-75.2)
[2022-11-03 00:43] LABS: HYPOCHROMIA 1+; PLATELET ESTIMATE NORMAL (NORMAL)
[2022-11-03 00:44] LABS: STOMATOCYTE 1+
[2022-11-03 01:13] LABS: COLLECTION METHOD CLEAN CATCH
[2022-11-03 01:17] LABS: PH 6.5 (5.0-8.5); SQUAMOUS EPITHELIAL 0-2 /hpf (0-10); URINE APPEARANCE Hazy (CLEAR/HAZY); URINE BACTERIA None Seen /hpf (NONE SEEN); URINE BLOOD TRACE-INTACT (NEGATIVE); URINE COLOR Yellow (YELLOW); URINE GLUCOSE Negative (NEGATIVE); URINE KETONE TRACE (NEGATIVE); URINE NITRATE Negative (NEGATIVE); URINE PROTEIN(semi-quant) Negative (NEGATIVE); URINE UROBILINOGEN 0.2 E.U/dL (0.2-1.0)
[2022-11-03] MEDS ORDERED: RHINOCORT0.032 MG/1 NS (01:42)
[2022-11-03] MEDS ORDERED: TEMOVATE OINT30 GM TOP (01:43)
[2022-11-03] MEDS ORDERED: VOLTAREN GEL 1%1 TU TP (01:45)
[2022-11-03] MEDS ORDERED: [UNRECOGNIZED DRUG - CODE] PO (01:46)
[2022-11-03] MEDS ORDERED: BACTROBAN15 GM TOP (01:47)
[2022-11-03] MEDS ORDERED: NYAMYC100000 U/G TP (01:48)
[2022-11-03] MEDS ORDERED: ZOFRAN 4MG T4 MG/TAB PO (01:48)
[2022-11-03] MEDS ORDERED: NATURAL C500 MG PO (01:48)
[2022-11-03] MEDS ORDERED: SYNTHROID0.088 MG/T PO (03:26)
--- NOTE | 2022-11-03 08:44 | NUR ---
Patient arrived to the unit to room 349 from ER via bed. Patient alert and oriented x 4. Lungs CTA, Bowel sounds active, pulses presents. Patient has no skin tears or issues. Patient able to move all extremities without difficulty. Tele monitor in place. IVF infusing without difficulty. Patient reports of discomfort at the epigastric area, no signs of n/v. I assisted patient to the bathroom to void and patient had small formed brown bowel movement. Patient assisted back to bed and oriented to the room and the use of call self. Spouse at the bedside.
[2022-11-03] MEDS ORDERED: PROAIR HFA0.09 MG/AC IH (09:10)
--- NOTE | 2022-11-03 09:57 | NUR ---
Abseiling Instructor and SW Student met with Patient and at bedside to conduct Care Managment Assessment and discuss discharge planning. Patient lives in [place], [place] with her and is established with PCP Dr. Vee. Patient is established with BS and [facility] for insurance and requests discharge medications be sent to [facility]. Patient endorses the use of CPAP prior to admission. PAtient endorses independency with ADL/IADLs without assistive devices prior to admission. Patien states to not have DPOA and requests form, SW provided DPOA form. Discharge Plan: Pending further medical and SW assessment through treatment.
--- NOTE | 2022-11-03 10:04 | NUR ---
Initial visit; Patient and her waiting for the Hospitalist to visit to hear what their plan of treatment for Veda will be. She is experiencing discomfort though pain seems to be under control at this time. Jewelry Technician wished Veda well and Jewelry Technician will keep Veda in her prayers by request.
--- NOTE | 2022-11-03 12:24 | NUR ---
Patient has history of COPD and uses CPAP at night. Patient does not have her CPAP available at the bedside and wants to take a nap this afternoon. Patient reports that her oxgyen saturation drops down when she falls asleep without oxgyen. Supplementary oxgyen 2LN/C applied on . Patient tolerating it well .
--- NOTE | 2022-11-03 19:00 | NUR ---
Patient up walking in the hallway and not in any distress at this time.
--- NOTE | 2022-11-03 20:00 | NUR ---
PT A&O X4 LAYING IN BED W/ AT BEDSIDE. VSS. SHIFT ASSESSMENT COMPLETE. DENYING ANY PAIN OR N/V. IVF INFUSING TO LEFT AC. BED LOWERED & CALL LIGHT IN REACH. PT DENYING FURTHER NEEDS AT THIS TIME.
[2022-11-04 00:01] VITALS: BP_SYST 127
[2022-11-04 03:10] VITALS: BP 133/48; PULSE 51; TEMP 97.5
[2022-11-04 03:46] VITALS: BP_SYST 133
--- NOTE | 2022-11-04 05:36 | NUR ---
PT HAD UNEVENTFUL NIGHT & SLEPT IN BED THROUGHOUT THE SHIFT W/ CPAP ON. NO C/O PAIN OR N/V. BED LOWERED & CALL LIGHT IN REACH.
[2022-11-04 05:57] LABS: BASO # 0.1 K/mm3 (0.0-0.2); BASO % 0.8 % (0.0-2.0); EOS # 0.8 K/mm3 (0.0-0.7); EOS % 7.5 % (0.0-4.0); GRAN # 4.1 K/mm3 (1.4-6.5); GRAN % 38.6 % (42.2-75.2); LYMPH # 4.6 K/mm3 (1.2-3.4); LYMPH % 43.7 % (20.0-51.0); MEAN CELL VOLUME 98 fl (80.0-100.0); MEAN CORPUSCULAR HEMOGLOBIN 31 pg (27-31); MEAN CORPUSCULAR HGB CONC 32 g/dl (33.0-37.0); MEAN PLATELET VOLUME 8.9 fl (7.4-10.4); MONO % 9.1 % (1.7-9.3); PLATELET COUNT 252 K/mm3 (130-400); RED BLOOD COUNT 4.41 M/mm3 (4.10-5.30); REDCELL DISTRIBUTION WIDTH-CV 12.8 % (11.5-14.5)
[2022-11-04 05:59] LABS: HEMOGLOBIN 13.8 g/dl (12.5-16.0)
[2022-11-04 06:17] LABS: CALCIUM 8.2 mg/dL (8.4-10.2); CREATININE, serum 0.66 mg/dL (0.57-1.11); MAGNESIUM 1.9 mg/dL (1.6-2.6); POTASSIUM 3.7 mmol/L (3.5-4.5)
--- NOTE | 2022-11-04 07:16 | NUR ---
End of shift report received from the night nurse, HÉCTOR Quintero.
--- NOTE | 2022-11-04 07:33 | NUR ---
Patient awake in bed watching movies on Ipad. Patient alert and oriented and states she has been passing out gas. Denies of n/v, shortness of breath and epigastric pain. Tele monitor in place. IVF infusing without difficulty. Patient states she's feeling better and has no concerns at this time.
[2022-11-04 08:09] VITALS: BP 117/45; PULSE 47; TEMP 98.1
[2022-11-04 09:00] VITALS: BP_SYST 117
--- NOTE | 2022-11-04 09:24 | NUR ---
Follow-up visit; Patient doing better and thanked Storage Worker for looking in on her again this morning. Patient and Storage Worker spoke of her illness and Storage Worker offered Veda God's blessings and prays that she stays well.
[2022-11-04] MEDS ORDERED: ZOFRAN 4MG T4 MG/TAB PO (10:16)
--- NOTE | 2022-11-04 12:30 | NUR ---
Patient INT discontinued, discharged instruction given with no issues and concerns. Paient discharged home at 1230.
== END 2022-11-04 12:30 | disposition home or self-care (01) | DRG 389 ==
LOC: COL.ER → SURG 02:26
PROVIDERS: Family Medicine; Internal Medicine; ADMIT Internal Medicine
DX: K56.609 Unspecified intestinal obstruction, unspecified as to partial versus complete obstruction (principal); E87.4 Mixed disorder of acid-base balance; K50.90 Crohn's disease, unspecified, without complications; D72.829 Elevated white blood cell count, unspecified; E87.6 Hypokalemia; J44.9 Chronic obstructive pulmonary disease, unspecified; I10 Essential (primary) hypertension; K21.9 Gastro-esophageal reflux disease without esophagitis; E03.9 Hypothyroidism, unspecified
CPT/HCPCS: C9113; J1170; J1836; J2405; J2550; J3010; J3480; J7030; Q9967

== ENCOUNTER 2022-12-14 12:42 | Outpatient (CLI) | payer MEDICARE, BC ==
[~2022-12-14] VITALS: Ht 160 cm; Wt 76.9 kg
[~2022-12-14 12:42] MED LIST changes: +BACTROBAN15 GM TOP; +NATURAL C500 MG PO; +NYAMYC100000 U/G TP; +PROAIR HFA0.09 MG/AC IH; +SYNTHROID0.088 MG/T PO; +VOLTAREN GEL 1%1 TU TP; +[UNRECOGNIZED DRUG - CODE] PO
[2022-12-14 13:34] VITALS: BP 120/78; PULSE 55; TEMP 97.7
[2022-12-14 13:45] LABS: BASO # 0.1 K/mm3 (0.0-0.2); BASO % 0.9 % (0.0-2.0); EOS # 0.7 K/mm3 (0.0-0.7); GRAN # 3.4 K/mm3 (1.4-6.5); GRAN % 35.2 % (42.2-75.2); HEMATOCRIT 43.6 % (37.0-47.0); HEMOGLOBIN 14.5 g/dl (12.5-16.0); LYMPH # 4.5 K/mm3 (1.2-3.4); MEAN CELL VOLUME 96 fl (80.0-100.0); MEAN CORPUSCULAR HEMOGLOBIN 32 pg (27-31); MEAN CORPUSCULAR HGB CONC 33 g/dl (33.0-37.0); MEAN PLATELET VOLUME 8.6 fl (7.4-10.4); MONO % 10.6 % (1.7-9.3); PLATELET COUNT 273 K/mm3 (130-400); RED BLOOD COUNT 4.53 M/mm3 (4.10-5.30); REDCELL DISTRIBUTION WIDTH-CV 12.4 % (11.5-14.5)
[2022-12-14 14:01] LABS: ALBUMIN 3.6 gm/dL (3.4-4.8); BILIRUBIN,DIRECT 0.3 mg/dL (0.0-0.5); BILIRUBIN,TOTAL 0.7 mg/dL (0.2-1.2); TOTAL PROTEIN 6.8 gm/dL (6.2-8.1)
[2022-12-14 14:30] VITALS: BP 113/66; PULSE 53
[2022-12-14 15:00] VITALS: BP 100/65; PULSE 51
[2022-12-14 15:30] VITALS: BP 105/69; PULSE 53
[2022-12-14 16:00] VITALS: BP 117/65; PULSE 46
[2022-12-14 16:35] VITALS: BP 108/65; PULSE 55
== END 2022-12-14 16:40 | disposition home or self-care (01) ==
LOC: EUO 12:42
PROVIDERS: Internal Medicine Gastroenterology
DX: K50.812 Crohn's disease of both small and large intestine with intestinal obstruction (principal)
CPT/HCPCS: J1200; J7050; Q5103

== ENCOUNTER 2023-01-11 11:00 | Outpatient (CLI) | payer MEDICARE, BC ==
[~2023-01-11] VITALS: Ht 160 cm; Wt 98.7 kg
[2023-01-11] VITALS (10 sets, daily range): BP systolic 90–131; BP diastolic 53–72; PULSE 50–62; TEMP 98.6
[2023-01-11 11:31] LABS: BASO # 0.1 K/mm3 (0.0-0.2); BASO % 1.1 % (0.0-2.0); EOS # 0.7 K/mm3 (0.0-0.7); EOS % 6.9 % (0.0-4.0); GRAN # 3.6 K/mm3 (1.4-6.5); GRAN % 34.3 % (42.2-75.2); HEMATOCRIT 43.7 % (37.0-47.0); HEMOGLOBIN 14.4 g/dl (12.5-16.0); LYMPH # 4.7 K/mm3 (1.2-3.4); LYMPH % 45.1 % (20.0-51.0); MEAN CELL VOLUME 97 fl (80.0-100.0); MEAN CORPUSCULAR HEMOGLOBIN 32 pg (27-31); MEAN CORPUSCULAR HGB CONC 33 g/dl (33.0-37.0); MEAN PLATELET VOLUME 8.5 fl (7.4-10.4); MONO # 1.2 K/mm3 (0.1-0.6); PLATELET COUNT 301 K/mm3 (130-400); RED BLOOD COUNT 4.53 M/mm3 (4.10-5.30); REDCELL DISTRIBUTION WIDTH-CV 12.4 % (11.5-14.5)
--- NOTE | 2023-01-11 15:56 | NUR ---
PT TOLERATED INFLECTRA INFUSION WELL. VS REMAINED WITHIN NORMAL LIMITS. IV DISCONTINUED UPON DISCHARGE. PT AMBULATED INDEPENDENTLY TO [facility] FOLLOWING INFUSION AND REMAINED FREE FROM ACUTE CONCERNS AND COMPLAINTS.
== END 2023-01-11 16:03 | disposition home or self-care (01) ==
LOC: EUO 11:00
PROVIDERS: Internal Medicine Gastroenterology
DX: K50.812 Crohn's disease of both small and large intestine with intestinal obstruction (principal)
CPT/HCPCS: J1200; J7050; Q5103

== ENCOUNTER 2023-03-08 12:50 | Outpatient (CLI) | payer MEDICARE, BC ==
[2023-03-08] VITALS (7 sets, daily range): BP systolic 89–131; BP diastolic 54–77; PULSE 50–64; TEMP 98
[~2023-03-08] VITALS: Ht 160 cm; Wt 77.7 kg
[~2023-03-08 12:50] MED LIST changes: +00186-0372-20 IH
[2023-03-08 13:14] LABS: BASO # 0.1 K/mm3 (0.0-0.2); EOS # 0.4 K/mm3 (0.0-0.7); EOS % 4.1 % (0.0-4.0); GRAN # 3.6 K/mm3 (1.4-6.5); GRAN % 34.4 % (42.2-75.2); HEMATOCRIT 49.3 % (37.0-47.0); HEMOGLOBIN 16.2 g/dl (12.5-16.0); LYMPH # 5.2 K/mm3 (1.2-3.4); LYMPH % 49.3 % (20.0-51.0); MEAN CELL VOLUME 96 fl (80.0-100.0); MEAN CORPUSCULAR HEMOGLOBIN 32 pg (27-31); MEAN CORPUSCULAR HGB CONC 33 g/dl (33.0-37.0); MEAN PLATELET VOLUME 8.3 fl (7.4-10.4); MONO # 1.1 K/mm3 (0.1-0.6); MONO % 10.9 % (1.7-9.3); PLATELET COUNT 295 K/mm3 (130-400); RED BLOOD COUNT 5.13 M/mm3 (4.10-5.30); REDCELL DISTRIBUTION WIDTH-CV 12.5 % (11.5-14.5)
[2023-03-08] MEDS ORDERED: diphenhydrAMINE 50 MG/ML 1 ML VIAL IV ONE (13:30)
[2023-03-08] MEDS ORDERED: INFLIXIMAB DYYB IV ONE (13:30)
[2023-03-08] MEDS ORDERED: Acetaminophen 325 MG TAB PO ONE (13:30)
[2023-03-08] MEDS ORDERED: NS IV ONE (13:30)
--- NOTE | 2023-03-08 16:44 | NUR ---
pt tolerated infusion well and vs remained within normal limits. IV discontinued and pt ambulated independently to [facility] upon discharge.
== END 2023-03-08 16:45 | disposition home or self-care (01) ==
LOC: EUO 12:50
PROVIDERS: Internal Medicine Gastroenterology
DX: K50.812 Crohn's disease of both small and large intestine with intestinal obstruction (principal)
CPT/HCPCS: J1200; J7050; Q5103

== ENCOUNTER 2023-05-03 12:46 | Outpatient (CLI) | payer MEDICARE, BC ==
[2023-05-03 13:20] LABS: HEMATOCRIT 45.7 % (37.0-47.0); MEAN CELL VOLUME 96 fl (80.0-100.0); MEAN CORPUSCULAR HEMOGLOBIN 32 pg (27-31); MEAN CORPUSCULAR HGB CONC 33 g/dl (33.0-37.0); MEAN PLATELET VOLUME 8.6 fl (7.4-10.4); PLATELET COUNT 265 K/mm3 (130-400); RED BLOOD COUNT 4.75 M/mm3 (4.10-5.30); REDCELL DISTRIBUTION WIDTH-CV 12.5 % (11.5-14.5)
[2023-05-03 14:06] LABS: EOSINOPHIL 6 % (0-4); HYPOCHROMIA 1+; LYMPHOCYTE 51 % (20.0-51.0); NEUTROPHILS 36 % (42.0-75.2); PLATELET ESTIMATE NORMAL (NORMAL)
[2023-05-03] MEDS ORDERED: INFLIXIMAB DYYB IV ONE (14:15)
[2023-05-03] MEDS ORDERED: Acetaminophen 325 MG TAB PO ONE (14:15)
[2023-05-03] MEDS ORDERED: NS IV ONE (14:15)
[2023-05-03] MEDS ORDERED: diphenhydrAMINE 50 MG/ML 1 ML VIAL IV ONE (14:15)
[2023-05-03 14:30] VITALS: BP 124/86; PULSE 54; TEMP 97.5
[2023-05-03 15:08] VITALS: BP 121/73; PULSE 50; TEMP 98.1
[2023-05-03 15:39] VITALS: BP 103/61; PULSE 50
[2023-05-03 16:00] VITALS: BP 110/72; PULSE 55
[2023-05-03 16:30] VITALS: BP 116/58; PULSE 56
--- NOTE | 2023-05-03 16:44 | NUR ---
pt tolerated infusion well. vs remained within normal limits and pt ambulated independently to [facility] upon discharge. IV discontinued.
== END 2023-05-03 17:00 | disposition home or self-care (01) ==
LOC: EUO 12:46
PROVIDERS: Internal Medicine Gastroenterology
DX: K50.812 Crohn's disease of both small and large intestine with intestinal obstruction (principal)
CPT/HCPCS: J1200; J7050; Q5103

== ENCOUNTER 2023-05-31 13:20 | Outpatient (CLI) | payer MEDICARE, BC ==
[~2023-05-31] VITALS: Ht 160 cm; Wt 79.0 kg
[2023-05-31 14:15] LABS: BASO # 0.1 K/mm3 (0.0-0.2); BASO % 0.7 % (0.0-2.0); EOS # 0.3 K/mm3 (0.0-0.7); EOS % 2.8 % (0.0-4.0); GRAN # 4.2 K/mm3 (1.4-6.5); GRAN % 37.6 % (42.2-75.2); HEMATOCRIT 47.6 % (37.0-47.0); HEMOGLOBIN 15.5 g/dl (12.5-16.0); LYMPH # 5.2 K/mm3 (1.2-3.4); LYMPH % 47.1 % (20.0-51.0); MEAN CELL VOLUME 96 fl (80.0-100.0); MEAN CORPUSCULAR HEMOGLOBIN 31 pg (27-31); MEAN CORPUSCULAR HGB CONC 33 g/dl (33.0-37.0); MEAN PLATELET VOLUME 8.8 fl (7.4-10.4); MONO # 1.3 K/mm3 (0.1-0.6); MONO % 11.2 % (1.7-9.3); PLATELET COUNT 286 K/mm3 (130-400); RED BLOOD COUNT 4.94 M/mm3 (4.10-5.30); REDCELL DISTRIBUTION WIDTH-CV 12.6 % (11.5-14.5)
[2023-05-31] MEDS ORDERED: NS IV ONE (15:00)
[2023-05-31] MEDS ORDERED: Acetaminophen 325 MG TAB PO ONE (15:00)
[2023-05-31] MEDS ORDERED: diphenhydrAMINE 50 MG/ML 1 ML VIAL IV ONE (15:00)
[2023-05-31] MEDS ORDERED: INFLIXIMAB DYYB IV ONE (15:00)
[2023-05-31 15:18] LABS: ALBUMIN 3.7 g/dL (3.4-4.8); BILIRUBIN,DIRECT 0.3 mg/dL (0.0-0.5); BILIRUBIN,TOTAL 0.8 mg/dL (0.2-1.2); TOTAL PROTEIN 6.8 g/dl (6.2-8.1)
[2023-05-31 15:30] VITALS: BP 124/70; PULSE 64; TEMP 97.9
[2023-05-31 16:00] VITALS: BP 100/65; PULSE 53
[2023-05-31 16:30] VITALS: BP 102/63; BP 113/68; PULSE 58; PULSE 60
[2023-05-31 17:00] VITALS: BP 108/61; PULSE 57
--- NOTE | 2023-05-31 17:12 | NUR ---
PT TOLERATES INFUSION WELL. VS REMAIN WITHIN PT'S NORMAL LIMITS AND PT IS FREE FROM ACUTE CONCERNS AND COMPLAINTS. IV DISCONTINUED FOLLOWING INFUSION. PT AMBULATES TO [facility] INDEPENDENTLY UPON DISCHARGE.
[2023-05-31 17:29] VITALS: BP 101/74; PULSE 59
== END 2023-05-31 17:30 | disposition home or self-care (01) ==
LOC: EUO 13:20
PROVIDERS: Internal Medicine Gastroenterology
DX: K50.812 Crohn's disease of both small and large intestine with intestinal obstruction (principal)
CPT/HCPCS: J1200; J7050; Q5103

== ENCOUNTER 2023-08-30 12:40 | Outpatient (CLI) | payer MEDICARE, BC ==
[~2023-08-30] VITALS: Ht 160 cm; Wt 79.3 kg
[2023-08-30 13:08] LABS: HEMATOCRIT 45.8 % (37.0-47.0); HEMOGLOBIN 15.1 g/dl (12.5-16.0); MEAN CELL VOLUME 98 fl (80.0-100.0); MEAN CORPUSCULAR HEMOGLOBIN 32 pg (27-31); MEAN CORPUSCULAR HGB CONC 33 g/dl (33.0-37.0); MEAN PLATELET VOLUME 9.2 fl (7.4-10.4); PLATELET COUNT 274 K/mm3 (130-400); RED BLOOD COUNT 4.67 M/mm3 (4.10-5.30); REDCELL DISTRIBUTION WIDTH-CV 12.6 % (11.5-14.5)
[2023-08-30] MEDS ORDERED: VITAMIN C500 MG PO (13:10)
[2023-08-30 13:23] VITALS: BP 117/70; PULSE 47; TEMP 97.7
[2023-08-30 13:28] LABS: EOSINOPHIL 4 % (0-4); LYMPHOCYTE 63 % (20.0-51.0); NEUTROPHILS 29 % (42.0-75.2); PLATELET ESTIMATE NORMAL (NORMAL)
[2023-08-30] MEDS ORDERED: diphenhydrAMINE 50 MG/ML 1 ML VIAL IV ONE (13:30)
[2023-08-30] MEDS ORDERED: Acetaminophen 325 MG TAB PO ONE (13:30)
[2023-08-30] MEDS ORDERED: NS IV ONE (14:00)
[2023-08-30] MEDS ORDERED: INFLIXIMAB DYYB IV ONE (14:00)
[2023-08-30 14:15] VITALS: BP 122/67; PULSE 51
[2023-08-30 14:45] VITALS: BP 104/62; PULSE 52
[2023-08-30 15:15] VITALS: BP 115/73; PULSE 58
[2023-08-30 15:45] VITALS: BP 123/69; PULSE 58
[2023-08-30 16:15] VITALS: BP 114/73; PULSE 57
== END 2023-08-30 16:19 | disposition home or self-care (01) ==
LOC: EUO 12:40
PROVIDERS: Internal Medicine Gastroenterology
DX: K50.812 Crohn's disease of both small and large intestine with intestinal obstruction (principal)
CPT/HCPCS: J1200; J7050; Q5103

== ENCOUNTER 2023-11-29 12:43 | Outpatient (CLI) | payer MEDICARE, BC ==
[~2023-11-29] VITALS: Ht 160 cm; Wt 78.9 kg
[2023-11-29 13:11] LABS: HEMATOCRIT 47.1 % (37.0-47.0); HEMOGLOBIN 15.8 g/dl (12.5-16.0); MEAN CELL VOLUME 96 fl (80.0-100.0); MEAN CORPUSCULAR HEMOGLOBIN 32 pg (27-31); MEAN CORPUSCULAR HGB CONC 34 g/dl (33.0-37.0); MEAN PLATELET VOLUME 8.7 fl (7.4-10.4); PLATELET COUNT 260 K/mm3 (130-400); RED BLOOD COUNT 4.89 M/mm3 (4.10-5.30); REDCELL DISTRIBUTION WIDTH-CV 12.7 % (11.5-14.5)
[2023-11-29 13:20] VITALS: BP 124/84; PULSE 57; TEMP 98.5
[2023-11-29 13:33] LABS: ALBUMIN 3.7 g/dL (3.4-4.8); BILIRUBIN,DIRECT 0.3 mg/dL (0.0-0.5); BILIRUBIN,TOTAL 0.8 mg/dL (0.2-1.2); TOTAL PROTEIN 7.6 g/dl (6.2-8.1)
[2023-11-29 14:00] VITALS: BP 121/90; PULSE 56; TEMP 98
[2023-11-29] MEDS ORDERED: diphenhydrAMINE 50 MG/ML 1 ML VIAL IV ONE (14:00)
[2023-11-29] MEDS ORDERED: INFLIXIMAB DYYB IV SCH (14:00)
[2023-11-29] MEDS ORDERED: Acetaminophen 325 MG TAB PO ONE (14:00)
[2023-11-29] MEDS ORDERED: NS IV SCH (14:00)
[2023-11-29 14:14] LABS: BASOPHIL 1 % (0-2); EOSINOPHIL 4 % (0-4); LYMPHOCYTE 49 % (20.0-51.0); NEUTROPHILS 40 % (42.0-75.2)
[2023-11-29 14:30] VITALS: BP 114/77; PULSE 60
[2023-11-29 15:00] VITALS: BP 104/59; PULSE 54
[2023-11-29 15:30] VITALS: BP 103/64; PULSE 55
[2023-11-29 16:00] VITALS: BP 102/65; PULSE 50
[2023-11-30 10:15] LABS: PATHOLOGY DIFF REVIEW OK
== END 2023-11-30 07:30 ==
LOC: EUO 12:43
PROVIDERS: Internal Medicine Gastroenterology
DX: K50.812 Crohn's disease of both small and large intestine with intestinal obstruction (principal)
CPT/HCPCS: J1200; J7050; Q5103

== ENCOUNTER 2024-01-24 09:47 | Outpatient (CLI) | payer MEDICARE, BC ==
[~2024-01-24] VITALS: Ht 160 cm; Wt 81.5 kg
[~2024-01-24 09:47] MED LIST changes: +VITAMIN D 400400 IU
[2024-01-24 10:11] LABS: BASO # 0.1 K/mm3 (0.0-0.2); EOS # 0.6 K/mm3 (0.0-0.7); GRAN # 3.3 K/mm3 (1.4-6.5); GRAN % 35.8 % (42.2-75.2); HEMATOCRIT 45.3 % (37.0-47.0); HEMOGLOBIN 15.3 g/dl (12.5-16.0); LYMPH # 4.2 K/mm3 (1.2-3.4); MEAN CELL VOLUME 96 fl (80.0-100.0); MEAN CORPUSCULAR HEMOGLOBIN 33 pg (27-31); MEAN CORPUSCULAR HGB CONC 34 g/dl (33.0-37.0); MEAN PLATELET VOLUME 8.8 fl (7.4-10.4); PLATELET COUNT 257 K/mm3 (130-400); RED BLOOD COUNT 4.71 M/mm3 (4.10-5.30); REDCELL DISTRIBUTION WIDTH-CV 12.3 % (11.5-14.5)
[2024-01-24] MEDS ORDERED: diphenhydrAMINE 50 MG/ML 1 ML VIAL IV ONE (11:00)
[2024-01-24] MEDS ORDERED: Acetaminophen 325 MG TAB PO ONE (11:00)
[2024-01-24 11:30] VITALS: BP 111/67; PULSE 61
[2024-01-24] MEDS ORDERED: NS IV ONE (11:30)
[2024-01-24] MEDS ORDERED: INFLIXIMAB DYYB IV ONE (11:30)
[2024-01-24 12:00] VITALS: BP 117/72; PULSE 59
[2024-01-24 12:30] VITALS: BP 104/64; PULSE 52
[2024-01-24 13:00] VITALS: BP 99/66; PULSE 53
[2024-01-24 13:30] VITALS: BP 102/60; PULSE 64
== END 2024-01-24 14:00 | disposition home or self-care (01) ==
LOC: EUO 09:47
PROVIDERS: Internal Medicine Gastroenterology
DX: K50.812 Crohn's disease of both small and large intestine with intestinal obstruction (principal)
CPT/HCPCS: J1200; J7050; Q5103